=== PATIENT | male | born 1945 | race Caucasian/White ===

== ENCOUNTER 2017-02-22 18:33 | Outpatient (CLI) | payer MEDICARE | END 2017-02-22 18:34 | disposition short-term general hospital (02) | LOC: EMS 18:33 | PROVIDERS: ATTEND Surgery | DX: R53.1 Weakness (principal) | CPT/HCPCS: A0425; A0427 ==

== ENCOUNTER 2017-03-03 15:03 | Outpatient (CLI) | payer MEDICARE ==
[2017-03-03 17:46] LABS: BASOPHILS % (AUTO) 0.1 %; HCT - HEMATOCRIT 27.8 % (42.0-52.0); HGB - HEMOGLOBIN 8.9 g/dL (14.0-18.0); LYMPHOCYTES # (AUTO) 0.3 10^3/uL (1.5-3.5); LYMPHOCYTES % (AUTO) 2.6 %; MEAN CORPUSCULAR HEMOGLOBIN 29.8 pg (27.0-31.0); MEAN CORPUSCULAR HGB CONC 32.1 g/dL (32.0-36.0); MEAN CORPUSCULAR VOLUME 92.9 fL (80.0-94.0); MEAN PLATELET VOLUME 8.7 fL (7.4-11.4); MONOCYTES # (AUTO) 0.4 10^3/uL (0.0-1.0); MONOCYTES % (AUTO) 2.6 %; NEUTROPHILS # (AUTO) 12.7 10^3/uL (1.5-6.6); NEUTROPHILS % (AUTO) 94.7 %; NUCLEATED RED BLOOD CELLS AUTO 0.1 /100WBC; RED BLOOD COUNT 2.99 10^6/uL (4.70-6.10); RED CELL DISTRIBUTION WIDTH 16.3 % (12.0-15.0); UNCORRECTED WHITE BLOOD COUNT 13.4 x10^3/uL; WHITE BLOOD COUNT 13.4 x10^3/uL (4.8-10.8)
== END 2017-03-03 15:04 | disposition home or self-care (01) ==
LOC: LAB 15:03
PROVIDERS: ATTEND Internal Medicine
DX: K92.2 Gastrointestinal hemorrhage, unspecified (principal)
CPT/HCPCS: 36415; 85025

== ENCOUNTER 2017-06-15 08:57 | Outpatient (CLI) | payer MEDICARE ==
[2017-06-15 09:36] LABS: ALBUMIN/GLOBULIN RATIO 0.8 (1.0-2.2); BILIRUBIN,TOTAL 0.5 mg/dL (0.2-1.0); CALCIUM 9.1 mg/dL (8.5-10.3); POTASSIUM 4.5 mmol/L (3.5-5.0)
== END 2017-06-15 08:58 | disposition home or self-care (01) ==
LOC: LAB 08:57
PROVIDERS: ATTEND Family Medicine
DX: I50.9 Heart failure, unspecified (principal)
CPT/HCPCS: 36415; 80053

== ENCOUNTER 2017-08-04 09:30 | Outpatient (CLI) | payer MEDICARE ==
--- NOTE | 2017-08-04 16:02 | CONSULTATION NOTE ---
Palliative Care Consultation - Referral Referring Provider: Dr. Baltazar Lee Time of Visit: 9:30 Referral setting: Home Referral Reason: interstitial lung disease/increasing SOB - Information Sources Records reviewed: Previous records reviewed History/Review of Systems obtained from: Patient, Family Exam limitations: No limitations - History of Present Illness Brief History of Present Illness: Thank you, Dr. Lee, for asking the palliative care consult service to be involved in the care of your patient. I am asked to provide support regarding a recent decline in respiratory status, patient's inquiries about hospice, symptom management, and advanced care planning. This is a luis e 72-year-old gentleman with interstitial pulmonary disease and a quite complicated health history, including chronic lymphoid leukemia, heart failure, PVD, DM 2, HTN, hyperlipidemia, OA, RLS. He has undergone open heart surgery twice, he has had at least 10-12 stents placed over a period of three decades. He has had multiple hospital admissions over the past several years for treatment of coronary artery disease, treatment of peripheral vascular disease with infection and graft, and respiratory failure with a diagnosis of interstitial lung disease. Now he is on 24 is/7 oxygen (4 liters) and is extremely dyspneic with any exertion. Pulmonology evaluated him and recommended pulmonary rehabilitation, but he did not complete this therapy due to the severity of his dyspnea, which did not seem to be improving. 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 He was about to undergo chemotherapy, however he will not proceed with that plan due to the significant decline in his respiratory status. His O2 sats are 95% on 4L of O2, HR 65, while he is sitting and immobile. After 2 minutes of exertion with 4L of oxygen, his O2 sats drop to 85%, HR 86, and it takes 2 minutes to return to his baseline. After 2 minutes of exertion on room air, his O2 sats drop to 77%, HR 90, and after 3 minutes of recuperation, sats were at 79-81%, HR 67. Accommodations he has made since his decline in respiratory function is moving into a bedroom on the main floor of the house and avoiding steps as much as possible. He sleeps in the bed that they have raised about 4 inches. He also sleeps with at least three pillows. He has had difficulty sleeping recently due to restless leg syndrome, and so he is trying ambien as prescribed by his PCP. He is not opioid naive as he is currently using Twisp 1-2 times a day for muskuloskeletal pain. He has had a positive experience with morphine in the past , post-operatively, and so he is positive about starting it now for relief of respiratory symptoms. Information obtained from patient, spouse, and the EMR chart notes from Dr. Baltazar Lee. Medical/Surgical History - Past Medical History Cardiovascular: reports: Congestive heart failure, Hypertension, High cholesterol, Coronary artery disease, Peripheral Vascular Disease, CA (NSTEMI) Respiratory: reports: Shortness of breath, Other (interstitial lung disease) Musculoskeletal: reports: Osteoarthritis, Other (trochanteric bursistis, R hip) MRSA Hx?: No Other Past Medical History: chronic lymphoid leukemia, now coming out of 6-year remission - Past Surgical History Cardiovascular: reports: CABG, Coronary stent (multiple stents), Angioplasty, Other (aorotobifemoral bypass surgery with subsequent infection of prostehetic vascular graft) - Substance History Tobacco Details: Cigarettes (quit 35 years ago (1970s). 10 year pack history.) Social History - Living Situation Living arrangement: At home Living Situation: With spouse/s.o. Support System: He and his have been 34 years, and right after returning from their [facility] hiking on the [facility] trail was when he had an angioplasty and his first stent. His doctor told him at that time to enjoy the life he had and make every minute count, and so they have done that. 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 His works with "fibers," from raising the sheep, shearing the wool, spinning it, and weaving it. He has enjoyed collecting and showing [employer] cars (model T's. They both have enjoyed hiking and activities through the years. They also have a good social support network on [facility]. Neither one of them can drive anymore (due to health problems; she has problems with her vision ) and their farm is remote. Neighbors and friends take them shopping, on errands , and to medical appointments. His friends from the [email or web address] car club are helping him get two of his classic cars running this weekend. Medications/Allergies - Medications Home Medications: Ambulatory Orders Medication Instructions Recorded Confirmed Insulin Glargine,Hum.rec.anlog 50 unit SQ QAM 02/01/13 08/04/17 [Lantus] Losartan [Cozaar] 50 mg PO BID 02/01/13 08/04/17 Metformin HCl 500 mg PO BID 02/01/13 08/04/17 Potassium 10 meq PO DAILY 02/01/13 08/04/17 Gabapentin 300 mg PO DAILY PRN 12/15/14 08/04/17 Hydrocodone/Acetaminophen [Twisp 1 - 2 tab PO Q6H PRN 10/01/15 08/04/17 5-325 Tablet] Amoxicillin/Potassium Clav [Amox 1 each PO BID 02/01/16 08/04/17 Tr-K Clv 875-125 mg Tab] Clopidogrel [Plavix] 75 mg PO DAILY 08/01/16 08/04/17 Isosorbide Mononitrate ER [Imdur] 30 mg PO DAILY 08/01/16 08/04/17 Metoprolol Tartrate [Lopressor] 100 mg PO BID 08/01/16 08/04/17 [place]-3/Dha/Epa/Fish Oil [[place] 3 2 cap PO BID 08/01/16 08/04/17 500 Softgel] Torsemide 60 mg PO DAILY 08/01/16 08/04/17 Aspirin [Adult Low Dose Aspirin EC] 81 mg PO DAILY 08/04/17 08/04/17 Insulin Lispro [Humalog] 8 unit SUBQ ONCE PRN MDD use 08/04/17 08/04/17 sliding scale LORazepam [Ativan] 0.5 mg PO Q6H PRN 08/04/17 08/04/17 Morphine Sulfate [Morphine Sulf 0.25 ml PO Q2H PRN 08/04/17 08/04/17 Oral (Roxanol)] Nitroglycerin [Nitrostat] 0.4 mg SL Q5MIN PRN 08/04/17 08/04/17 Nystatin 1 each TOP BID PRN 08/04/17 08/04/17 Pramipexole Di-HCl [Mirapex] 1 mg PO QPM 08/04/17 08/04/17 Pravastatin Sodium 20 mg PO QPM 08/04/17 08/04/17 Zolpidem Tartrate [Ambien] 5 - 10 mg PO QPM PRN 08/04/17 08/04/17 - Allergies Allergies/Adverse Reactions: Allergies Allergy/AdvReac Type Severity Reaction Status Date / Time No Known Drug Allergies Allergy Verified 02/01/13 11:38 Review of Systems - Constitutional Constitutional: reports: Fatigue, Weight stable (195 lbs on home scale). denies : Poor appetite - Cardiovascular Cardiovascular: reports: Exertional dyspnea, Decr. exercise tolerance. denies: Chest pain, Edema - Respiratory Respiratory: reports: SOB at rest, SOB with exertion. denies: Pleuritic pain - Gastrointestinal Gastrointestinal: reports: Diarrhea (loose stools) - Genitourinary Genitourinary: denies: Dysuria, Frequency - Musculoskeletal Musculoskeletal: reports: Joint pain (no complaints of arthritic pain currently) , Assistive devices (ambulates with a cane) - Endocrine Endocrine: reports: Diabetes type 2 (BGs have been elevated recently) - Hematologic/Lymphatic Hematologic/Lymphatic: reports: Other (chronic lymphoid leukemia coming out of a 6-year remission) Physical Exam - Vital Signs Temperature: 97.5 F Pulse Rate: 65 O2 Saturation: 95 (on 4L O2 via NC) Blood Pressure: 170/90 (BP always increases with talking) - Physical Exam General Appearance: positive: No acute distress Eyes Bilateral: positive: EOMI, No lid inflammation, Conjunctivae nml, No scleral icterus ENT: positive: Pharynx nml, No signs of dehydration Neck: positive: Thyroid nml, No JVD, Trachea midline Cardiovascular: positive: No murmur, No gallop Respiratory: positive: Chest non-tender, No respiratory distress, Diminished in bases (LLL) Skin: positive: No symptoms Extremities: positive: Non-tender, No pedal edema Neurologic/Psychiatric: positive: Oriented x3, Motor nml, Sensation nml, Mood/ affect nml Palliative Care - POLST Patient has POLST: Yes POLST Status: DNR, Limited Interventions (open to hospitalization if it promotes quality of life, but no unnecessary prolongation of life) Pain: Pain unchanged Tiredness/Fatigue: Mild (1-3) Drowsiness/Sedation: None Nausea: None Depression: None Anxiety: Mild (1-3) Dyspnea: Severe (7-10) Anorexia: None Sleep: Sleeps poorly Constipation: No Performance Status: Current level of functioning: Ambulatory with aid of cane, but ambulation and all activity is extremely limited due to severe, persistent SOB. He uses 4L/ hour oxygen 24/04, which is a recent change in since May. He is able to perform his own ADLs and IADLs. No cognitive deficits, no incontinence. Palliative Care Performance Status: 60% - Palliative Care Discussion: Who is present: The patient, his spouse, and myself. Surrogate decision maker: Nelia Doran, spouse. Home [phone]. Patient/Family understanding of the illness: Patient and his spouse both have realistic expectations and insight into the seriousness of patients current condition. They understand that his lifespan is limited, the pay per click strategist said the average life expectancy is 5 years from diagnosis; he was diagnosed 2 years ago. Most important goals: The most important goal is quality of life and keeping him as comfortable as possible, and they are also not opposed to hospitalizations if it can further his comfort and quality of life, but want to avoid heroic measures and ICU. Patient/family concerns: The biggest concern is what to do in case of respiratory exacerbations, as they have had experienced that hospitalization has not "fixed" anything. I have provided some training on the use of morphine and lorazepam for relief of air hunger symptoms, and I will continue to teach and inform him and his spouse. Also, any hospitalizations should be to [facility], not [facility]. This could be dependent on what [place] permits. Impression and Recommendations - Palliative Care Impression: This is a luis e 72-year-old gentleman with severe, chronic shortness of air secondary to interstitial pulmonary disease and a quite complicated health history, including chronic lymphoid leukemia (now coming off of a 6 year remission), a long history of heart and vascular disease, and diabetes. His dyspnea has significantly worsened in recent weeks and he is now on 24/7 oxygen, 4 L per hour. He does not currently qualify for hospice, but will benefit from palliative care oversight and management of his symptoms, as well as help and support in advanced care planning. We will monitor and transition to hospice as appropriate. Recommendations/Counseling Done: 1. SOB/breathlessness: Started morphine 100mg/5ml. Take 0.25ml (5mg) every 2- 4 hours PRN for relief of SOB. Started lorazepam .05mg tab, 1 tab every 6 hours as needed for agitation related to SOB. For [id number] respiratory exacerbations, educated him on taking morphine and lorazepam together, can take second morphine dosage in 1/2 hour if no relief, and then another 1/2 hour if needed. Can take another lorazepam in 2 hours if needed. 2. Interstitial pulmonary disease: Next appointment with pay per click strategist ( Mannie Keane) and pulmonary function testing is scheduled for November 2017. 3. Chronic lymphoid leukemia: Recently off a 6-year remission, but will not start chemotherapy as originally planned, due to respiratory deficit. Being followed by Dr Wahl at [facility]. 4. Constipation, opioid-related: This has not been an issue even though he is currently using Twisp. He is having loose stools, so I started Miralax 17g daily prn. Will titrate as needed. 5. Restless leg syndrome: Continue pramipexole. Ambien was recently added to help his insomnia due to RLS, but he plans to replace it with morphine. Cautioned him on not using Twisp, morphine, lorazepam and ambien all together. 6. HTN: continue metoprolol and losartan. BP elevated today (170/90), he reports it could be from exertion of speaking extensively of his history. 7. DM II: Managed on metformin, Lantus 50 units Qam, Humalog 8 units plus S/S at meals. Checks BGs daily. Reports they have been increased recently. Follow up at next visit. 8. Advanced care planning: Discussed goals of care, translated these to the POLST, signed and left it for them to attach to refrigerator, made copies for chart. DNR, limited interventions, comfort abx, no feeding tube. Discussed Hospice, and he understands he does not currently meet criteria for admission. He and his want to continue to receive Palliative Care oversight and management of symptoms, and so we will monitor and transition to Hospice when appropriate. Return visit scheduled for 08/09 to follow up on new medications started . Time Spent: 90 minutes with greater than 50% done in counseling and evaluation of his respiratory status, coordination of care regarding advanced care planning and symptom burden, weighing the benefits and burdens of different intervention options. Providing anticipatory guidance.
== END 2017-08-04 09:31 | disposition home or self-care (01) ==
LOC: PC 09:30
PROVIDERS: ATTEND Nurse Practitioner
DX: Z51.5 Encounter for palliative care (principal); J84.9 Interstitial pulmonary disease, unspecified; C91.10 Chronic lymphocytic leukemia of B-cell type not having achieved remission; I11.0 Hypertensive heart disease with heart failure; I50.9 Heart failure, unspecified; E11.51 Type 2 diabetes mellitus with diabetic peripheral angiopathy without gangrene; M19.90 Unspecified osteoarthritis, unspecified site; G25.81 Restless legs syndrome; Z95.5 Presence of coronary angioplasty implant and graft; I25.10 Atherosclerotic heart disease of native coronary artery without angina pectoris; Z99.81 Dependence on supplemental oxygen; Z79.891 Long term (current) use of opiate analgesic; I25.2 Old myocardial infarction; Z95.1 Presence of aortocoronary bypass graft; Z87.891 Personal history of nicotine dependence; Z79.4 Long term (current) use of insulin; Z79.84 Long term (current) use of oral hypoglycemic drugs; Z66 Do not resuscitate; E78.5 Hyperlipidemia, unspecified
CPT/HCPCS: 99345

== ENCOUNTER 2017-08-09 15:30 | Outpatient (CLI) | payer MEDICARE ==
--- NOTE | 2017-08-09 19:04 | CONSULTATION NOTE ---
Palliative Care Follow Up - Referral Referring Provider: Dr. Baltazar Lee Time of Visit: 15:30 Referral setting: Home - Information Sources Records reviewed: Previous records reviewed History/Review of Systems obtained from: Patient Exam limitations: No limitations - History of Present Illness Update Brief HPI Update: This is a luis e 72-year-old gentleman with interstitial pulmonary disease and a quite complicated health history, including chronic lymphoid leukemia, heart failure, PVD, DM 2, HTN, hyperlipidemia, OA, RLS. He has had two open heart surgeries, multiple stents placed, and multiple hospital admissions for CAD, PVD , respiratory failure and a diagnosis of interstitial lung disease. He uses 24/ 7 oxygen (4 L) and is severely dyspneic with any exertion. He was unable to complete pulmonary therapy due to the severity of his dyspnea. Also he is now coming out of six-year remission of the lymphoma but is unable to undergo chemotherapy due to the significant decline in his respiratory status. Today was a followup after having started him on working and lorazepam for shortness of air. He reports feeling much better reporting that "the morphine is doing everything I was hoping it would do" and this includes controlling his RLS at night and permitting him to eliminate his other pain medications: Gabapentin, Mahnomen, and pramipexole. He did report that the first night he used morphine he had a scare. He had taken morphine, lorazepam, and Ambien before going to bed (contrary to what we had discussed during my first visit), and and woke up during the night, got out of bed and collapsed due to lower extremity weakness. This shook him up quite a bit, and he agrees now to not use on Ambien, and I provided further education on using lorazepam for extreme air hunger episodes, as opposed to routine SOB. He verbalized understanding of that plan. He has been using morphine about 4 days now, and is using it around 4 times daily, including at bedtime to aid sleep. He does note he feels his legs are more "wobbly" since starting it, and we discussed titrating his dosage downward, and that his body will habituate and the sedation and LE weakness should ameliorate. He has been using the MiraLAX and has had one episode of loose stool, so he will decrease to a quarter capful instead of a full capful and adjust as needed. Social History - Living Situation Living arrangement: At home Living Situation: With spouse/s.o. Medications/Allergies - Medications Home Medications: Ambulatory Orders Medication Instructions Recorded Confirmed Insulin Glargine,Hum.rec.anlog 50 unit SQ QAM 02/01/13 08/04/17 [Lantus] Losartan [Cozaar] 50 mg PO BID 02/01/13 08/04/17 Metformin HCl 500 mg PO BID 02/01/13 08/04/17 Potassium 10 meq PO DAILY 02/01/13 08/04/17 Gabapentin 300 mg PO DAILY PRN 12/15/14 08/04/17 Hydrocodone/Acetaminophen [[place] 1 - 2 tab PO Q6H PRN 10/01/15 08/04/17 5-325 Tablet] Amoxicillin/Potassium Clav [Amox 1 each PO BID 02/01/16 08/04/17 Tr-K Clv 875-125 mg Tab] Clopidogrel [Plavix] 75 mg PO DAILY 08/01/16 08/04/17 Isosorbide Mononitrate ER [Imdur] 30 mg PO DAILY 08/01/16 08/04/17 Metoprolol Tartrate [Lopressor] 100 mg PO BID 08/01/16 08/04/17 Henriette-3/Dha/Epa/Fish Oil [[place] 3 2 cap PO BID 08/01/16 08/04/17 500 Softgel] Torsemide 60 mg PO DAILY 08/01/16 08/04/17 Aspirin [Adult Low Dose Aspirin EC] 81 mg PO DAILY 08/04/17 08/04/17 Insulin Lispro [Humalog] 8 unit SUBQ ONCE PRN MDD use 08/04/17 08/04/17 sliding scale LORazepam [Ativan] 0.5 mg PO Q6H PRN 08/04/17 08/04/17 Morphine Sulfate [Morphine Sulf 0.25 ml PO Q2H PRN 08/04/17 08/04/17 Oral (Roxanol)] Nitroglycerin [Nitrostat] 0.4 mg SL Q5MIN PRN 08/04/17 08/04/17 Nystatin 1 each TOP BID PRN 08/04/17 08/04/17 Pramipexole Di-HCl [Mirapex] 1 mg PO QPM 08/04/17 08/04/17 Pravastatin Sodium 20 mg PO QPM 08/04/17 08/04/17 Zolpidem Tartrate [Ambien] 5 - 10 mg PO QPM PRN 08/04/17 08/04/17 - Allergies Allergies/Adverse Reactions: Allergies Allergy/AdvReac Type Severity Reaction Status Date / Time No Known Drug Allergies Allergy Verified 02/01/13 11:38 Review of Systems - Cardiovascular Cardiovascular: reports: Edema. denies: Palpitations, Chest pain - Respiratory Respiratory: reports: SOB at rest (improved with morphine), SOB with exertion ( improved with morphine) - Gastrointestinal Gastrointestinal: reports: Diarrhea (loose stool, one episode since starting Miralax), Good appetite. denies: Constipation - Genitourinary Genitourinary: denies: Dysuria, Frequency, Urgency, Incontinence - Musculoskeletal Musculoskeletal: reports: Other (RLS symptoms improved with morphine) - Endocrine Endocrine: reports: Diabetes type 2 (controlled) Physical Exam - Vital Signs Temperature: 97.6 F Pulse Rate: 70 O2 Saturation: 98 (on 4L O2) Blood Pressure: 148/90 - Physical Exam General Appearance: positive: No acute distress, Alert Eyes Bilateral: positive: EOMI, No lid inflammation, Conjunctivae nml, No scleral icterus ENT: positive: No signs of dehydration Neck: positive: Thyroid nml, No JVD, Trachea midline Cardiovascular: positive: Regular rate & rhythm, No murmur, No gallop Respiratory: positive: Chest non-tender, No respiratory distress, Diminished throughout (particularly left lobes). negative: Rales, Rhonchi Skin: positive: No symptoms Extremities: positive: Full ROM, Nml appearance, No pedal edema Neurologic/Psychiatric: positive: Oriented x3, Motor nml, Sensation nml, Mood/ affect nml Palliative Care - POLST Patient has POLST: Yes POLST Status: DNR, Limited Interventions Pain: Pain unchanged Tiredness/Fatigue: Mild (1-3) Drowsiness/Sedation: Mild (1-3) (wobbly legs with starting morphine) Nausea: None Depression: None Anxiety: None Dyspnea: Moderate (4-6) (improved) Anorexia: None Sleep: Variable sleep pattern (can wake up during the night.) Constipation: Comment (episodic loose stools, holds Miralax when that occurs) Feelings of wellbeing/Perceived Quality of Life: Good (He is enjoying the life he has.) Performance Status: Current level of functioning: Ambulatory with a cane, which is quite limited due to persistent SOB. He has been on 4 L oxygen 24/7 since May. He does not leave the house due to fear of being caught outside during an episode of respiratory exacerbation and possibly collapsing Palliative care performance status: 60% - Palliative Care Discussion: Who is present: The patient and myself. Surrogate decision maker: Nelia Doran, spouse. Home [phone]. Patient/family understanding of the illness: Patient reiterates his understanding that he has a very limited life span, but does say he is enjoying the life he has and finds pleasure in living his life. He is appreciating palliative care management and oversight, and especially pleased with symptom relief he is experiencing with morphine. He has stopped taking gabapentin, pramipexole, and Mahnomen, finding that morphine relieves the restless leg syndrome pain, in addition to alleviating his dyspnea. He is sleeping better with using morphine, but is still adjusting to the feeling of lower extremity weakness and unsteadiness. He agreed experiment with incrementally smaller dosages, starting at 0.15 or 0.20 mL. Impression and Recommendations - Palliative Care Impression: This is a luis e 72-year-old gentleman with severe, chronic shortness of air secondary to interstitial pulmonary disease and a quite complicated health history, including chronic lymphoid leukemia coming off a 6-year remission, a long history of heart and vascular disease, and diabetes. He has had increasingly severe dyspnea and has been on 24/7 oxygen 4 L per hour since May. About 4 days ago he started on morphine for relief of dyspnea symptoms, and as a well as lorazepam as needed for exacerbations and severe " air hunger." He notes a definite improvement in his symptoms, including RLS. I will work with him to titrate dosing to achieve the right balance of alleviation of dyspnea and functionality and continue to provide education and guidance. Recommendations/Counseling Done: Dyspnea: Improved with morphine 100 mg/5 mL -- take 0.25 mL (5 mg) PO every 2-4 hours when necessary for relief of SOB. Use lorazepam 0.5 mg tablet, one tablet every 6 hours as needed for agitation related to respiratory exacerbation. Provided further education on not mixing opioids, lorazepam, and Ambien. He will discontinue using Ambien, gabapentin and Mahnomen, and verbalizes understanding of use of morphine, and adding lorazepam with severe respiratory exacerbation. In case of respiratory exacerbation, OK to repeat morphine dose after 1/2 hour if no relief, and ok to repeat lorazepam dosage after 2 hours if no relief. Interstitial pulmonary disease: Follow up with physician allergist immunologist Mannie Keane is scheduled for November 2017. Chronic lymphoid leukemia: Will not start chemotherapy due to respiratory decline. Followed by Dr. Wahl at [facility]. Constipation, opioid-related: Decrease Miralax to a quarter capful daily, and titrate every 2-3 days as needed. Hold for loose stools. Restless leg syndrome: Improved with usage of morphine, patient is now discontinuing his Mahnomen, gabapentin and pramipexole. HTN: BP improved from previous visit which was 170/90, today it's 148/90. DM 2: Managing hyperglycemia with metformin and Lantus 50 units every morning, Humalog 8 units plus sliding scale at meals. Follow up on the BGs check, are BG readings still elevated? Follow up call next week. Time Spent: 20 minutes with greater than 50% done in evaluation, counseling and education regarding newly started medications, proper dosing and administration, and side effects. Provided anticipatory guidance.
== END 2017-08-09 15:31 | disposition home or self-care (01) ==
LOC: PC 15:30
PROVIDERS: ATTEND Nurse Practitioner
DX: Z51.5 Encounter for palliative care (principal); J84.9 Interstitial pulmonary disease, unspecified; C91.10 Chronic lymphocytic leukemia of B-cell type not having achieved remission; K59.03 Drug induced constipation; T40.2X5A Adverse effect of other opioids, initial encounter; G25.81 Restless legs syndrome; I11.0 Hypertensive heart disease with heart failure; I50.9 Heart failure, unspecified; E11.51 Type 2 diabetes mellitus with diabetic peripheral angiopathy without gangrene; E78.5 Hyperlipidemia, unspecified; Z95.1 Presence of aortocoronary bypass graft; I25.10 Atherosclerotic heart disease of native coronary artery without angina pectoris; Z99.81 Dependence on supplemental oxygen; Z79.891 Long term (current) use of opiate analgesic; Z79.4 Long term (current) use of insulin; Z79.82 Long term (current) use of aspirin; Z79.84 Long term (current) use of oral hypoglycemic drugs; Z66 Do not resuscitate; Z79.899 Other long term (current) drug therapy
CPT/HCPCS: 99347

== ENCOUNTER 2017-09-05 19:37 | Outpatient (CLI) | payer MEDICARE ==
--- NOTE | 2017-09-05 19:47 | CONSULTATION NOTE ---
Palliative Care Follow Up - Referral Referring Provider: Dr Baltazar Lee Time of Visit: 15:30 Referral setting: Home (Seen in home setting due to taxing and considerable effort required to leave the home due to being homebound secondary to significant breathlessness from interstitial pulmonary disease.) - Information Sources Records reviewed: Previous records reviewed History/Review of Systems obtained from: Patient, Family Exam limitations: No limitations - History of Present Illness Update Brief HPI Update: This is a luis e 72-year-old gentleman with interstitial pulmonary disease and a quite complicated health history, including chronic lymphoid leukemia, heart failure, PVD, DM 2, TH, hyperlipidemia, OA, RLS. He's had two open heart surgeries, multiple stents placed, and multiple hospital admissions for CAD, PVD , respiratory failure and a diagnosis of interstitial lung disease. He is coming out of a six-year remission of the lymphoma but is unable to undergo chemotherapy due to the significant decline in his respiratory status. He is on 4 liters of oxygen via nasal canula 24/04 and becomes severely dyspneic with any exertion. He has been using the morphine regularly since my initial visit 04 August 2017. He uses 5mg morphine 3-4 times daily, and lorazepam 2-3 times/day when he really feels the lack of oxygen. He notes that his SOB feels the worst around 5pm, when he gets up and becomes more active after being sedentary most of the day, reading or doing other quiet activity. Any exertion increases his dyspnea. He reports that the morphine does help with feelings of shortness of air, and lorazepam helps with the anxiety of dyspnea. He is careful to try to separate dosing of morphine and lorazepam by 2-3 hours to avoid over sedation. 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 He says "what difference does it make?" and that it won't change anything in his outcome. He says he has enough of the antibiotic to last until November. He also does not plan to follow up with his bartenders in November. He is not interested in the intervention the specialist was proposing, due to the side effects, and again, he thinks the benefits and projected outcome do not outweight the burdens. He reports his constipation is well controlled using 3/4 capful of miralax. He has a cough, occasionally productive, and mild crackles in RLL. He has started using his torsemide 60g daily again. He also has had two episodes of sudden feeling of being feverish, which pass by the next morning. He has used aspirin for symptoms; he could also use Tylenol for symptom relief. Social History - Living Situation Living arrangement: At home Living Situation: With spouse/s.o. Support System: Strong social network. neither he nor his drive anymore. They have a network of friends that take them shopping and on errands, and help around the farm. Medications/Allergies - Medications Home Medications: Ambulatory Orders Medication Instructions Recorded Confirmed Insulin Glargine,Hum.rec.anlog 50 unit SQ QAM 02/01/13 08/04/17 [Lantus] Losartan [Cozaar] 50 mg PO BID 02/01/13 08/04/17 Metformin HCl 500 mg PO BID 02/01/13 08/04/17 Potassium 10 meq PO DAILY 02/01/13 08/04/17 Hydrocodone/Acetaminophen [[place] 1 - 2 tab PO Q6H PRN 10/01/15 08/04/17 5-325 Tablet] Amoxicillin/Potassium Clav [Amox 1 each PO BID 02/01/16 08/04/17 Tr-K Clv 875-125 mg Tab] Clopidogrel [Plavix] 75 mg PO DAILY 08/01/16 08/04/17 Isosorbide Mononitrate ER [Imdur] 30 mg PO DAILY 08/01/16 08/04/17 Metoprolol Tartrate [Lopressor] 100 mg PO BID 08/01/16 08/04/17 [place]-3/Dha/Epa/Fish Oil [[place] 3 2 cap PO BID 08/01/16 08/04/17 500 Softgel] Torsemide 60 mg PO DAILY 08/01/16 08/04/17 Aspirin [Adult Low Dose Aspirin EC] 81 mg PO DAILY 08/04/17 08/04/17 Insulin Lispro [Humalog] 8 unit SUBQ ONCE PRN MDD use 08/04/17 08/04/17 sliding scale LORazepam [Ativan] 0.5 mg PO Q6H PRN 08/04/17 08/04/17 Morphine Sulfate [Morphine Sulf 0.25 ml PO Q2H PRN 08/04/17 08/04/17 Oral (Roxanol)] Nitroglycerin [Nitrostat] 0.4 mg SL Q5MIN PRN 08/04/17 08/04/17 Nystatin 1 each TOP BID PRN 08/04/17 08/04/17 Pramipexole Di-HCl [Mirapex] 1 mg PO QPM 08/04/17 08/04/17 Pravastatin Sodium 20 mg PO QPM 08/04/17 08/04/17 Zolpidem Tartrate [Ambien] 5 - 10 mg PO QPM PRN 08/04/17 08/04/17 Polyethylene Glycol 3350 [Miralax] 17 gm PO DAILY 09/05/17 09/05/17 - Allergies Allergies/Adverse Reactions: Allergies Allergy/AdvReac Type Severity Reaction Status Date / Time No Known Drug Allergies Allergy Verified 02/01/13 11:38 Review of Systems - Constitutional Constitutional: reports: Fever (Occasional (two) episodes of fever, relieved by aspirin.), Weight stable. denies: Poor appetite, Diaphoresis, Night sweats - Ears, Nose & Throat Ears, Nose & Throat: reports: Hearing loss - Cardiovascular Cardiovascular: reports: Exertional dyspnea, Decr. exercise tolerance. denies: Chest pain, Edema - Respiratory Respiratory: reports: Cough (occasional), Sputum production, SOB at rest, SOB with exertion - Gastrointestinal Gastrointestinal: reports: Poor appetite, Good appetite. denies: Constipation, Diarrhea, Change in bowel habits, Nausea - Genitourinary Genitourinary: denies: Dysuria, Frequency, Incontinence - Musculoskeletal Musculoskeletal: reports: Joint pain, Assistive devices (cane, walker) - Endocrine Endocrine: reports: Diabetes type 2 (On metformin, lispro and insulin glargine) Physical Exam - Vital Signs Temperature: 97.3 F Pulse Rate: 72 O2 Saturation: 99 (4L O2) Blood Pressure: 147/90 (His BP runs high) - Physical Exam General Appearance: positive: No acute distress, Alert Eyes Bilateral: positive: EOMI, No lid inflammation, Conjunctivae nml, No scleral icterus ENT: positive: No signs of dehydration Neck: positive: Thyroid nml, No JVD, Trachea midline Cardiovascular: positive: Regular rate & rhythm, No murmur, No gallop Respiratory: positive: No respiratory distress, Diminished in bases (Left side) , Rales (mild crackles RLL) Skin: positive: No symptoms Extremities: positive: Nml appearance, No pedal edema Neurologic/Psychiatric: positive: Oriented x3, Sensation nml, Mood/affect nml Palliative Care - POLST Patient has POLST: Yes POLST Status: DNR, Limited Interventions Pain: No pain Tiredness/Fatigue: Mild (1-3) Drowsiness/Sedation: None Nausea: None Depression: None Anxiety: Mild (1-3) (occasional, with feelings of SOB. Uses lorazepam for relief ) Dyspnea: Severe (7-10) (4L O2 continually.) Anorexia: None Sleep: Variable sleep pattern (when he occasionally wakes up in night, he takes lorazepam to go back to sleep) Feelings of wellbeing/Perceived Quality of Life: Good Performance Status: Current level of functioning: Mobility severely limited due to significant SOB. Ambulatory with cane. Severe SOB with any exertion, so he is house-bound; he does not go out on his property for fear of inability to get back into the house. Continues to perform his own ADLs. Continent of bowel and bladder. No cognitive deficits. Palliative care status: 60% - Palliative Care Discussion: Who is present: Patient, spouse, myself. Surrogate decision maker Nelia Doran, spouse Home [phone] Most important goals: He wants to be comfortable, and enjoy his life to the fullest within the limitations of his disease. He recognizes he has a terminal disease and is enjoying his time with his , and looks forward to activities like reading, and starting an art project he has been considering. He feels he has a good quality of life. Though he cannot do the things he has been able to do in the past, he has the ability to be grateful and happy for what he is still able to do and to accomplish. We reviewed his POLST form, and it still accurately reflects his goals and wishes. If he were to need hospitalization (limited intervention), he would want to go to the hospital -- but only [facility]; he no longer wants to go to [place], or anywhere off [facility]. He does not want to pursue treatment that he believes is not going to make a difference. For instance, he does not plan to follow up with the bartenders, or the infectious disease physician for his antibiotics. He will continue using the Augmentin until his current supply runs out sometime in November (he is supposed to take it "indefinitely"). We discussed the risk of sepsis, and he said he accepts that. Patient/family concerns: The patient and his are close friends with their [place] metallurgical engineering technician and feel they have a good social and spiritual support network. His is going to attend a spiritual gathering next week, and will be gone overnight. A friend will be coming to stay at the house with the patient so he is not alone. Impression and Recommendations - Palliative Care Impression: This is a luis e 72-year-old gentlemn with severe, chronic shortness of air secondary to interstitial pulmonary disease and a quite complicated health history including chronic lymphoid leukemia (coming off a 6-year remission), a long history of CHF, heart and vascular disease, and diabetes, and is currently on 4L of oxygen 24hrs/day. Morphine is controlling the SOB and providing comfort. He may benefit from adjustment of diuretics for crackles in lungs and occasional cough; I will follow up with Dr Lee, his PCP. Palliative care is monitoring; transition to Hospice when appropriate. Recommendations/Counseling Done: Dyspnea: Morphine 3-4 times/day. Currently using 0.25ml (5mg) dosing, ok to increase to 0.4-0.5ml (7.5-10mg) dosing if SOB not relieved with 5mg. Continue lorazepam 0.5mg tablet for anxiety associated with dyspnea. He's been using it 2 -3x/daily. OK to repeat morphine dose after 1/2 hour if no relief, and ok to repeat lorazepam dosage after 2 hours if no relief. CHF: On torsemide 60mg daily. Left message with his PCP, Dr Lee, inquiring whether he wants to increase dosage due to SOB and crackles. Follow up. He is also on metoprolol. Interstitial pulmonary disease: Customer Account Executive follow up consultation is scheduled for November; patient does not intend to go. Chronic lymphoid leukemia: managed by Dr Wahl at [facility] Constipation, opioid-induced: Controlled using 3/4 capful of Miralax daily. Continue to monitor. Restless leg syndrome: Improved with morphine usage. Continue pramipexole. DM 2: Continue metformin, Lantus 50 units Qam, Humalog 8 units plus sliding scale. Advanced care planning: Reviewed POLST (DNR, limited interventions), it still reflects his goals and wishes. Continue to follow up by phone weekly, meet in person monthly, monitor for decline, transition to Hospice when appropriate. Time Spent: 60 minutes were spent with more than 50% of the time spent on counseling, education, and coordination of care regarding SOB, cough, CHF, medications.
== END 2017-09-05 19:38 | disposition home or self-care (01) ==
LOC: PC 19:37
PROVIDERS: ATTEND Nurse Practitioner
DX: Z51.5 Encounter for palliative care (principal); J84.9 Interstitial pulmonary disease, unspecified; I50.9 Heart failure, unspecified; C91.10 Chronic lymphocytic leukemia of B-cell type not having achieved remission; K59.03 Drug induced constipation; T40.2X5D Adverse effect of other opioids, subsequent encounter; G25.81 Restless legs syndrome; E11.51 Type 2 diabetes mellitus with diabetic peripheral angiopathy without gangrene; I25.10 Atherosclerotic heart disease of native coronary artery without angina pectoris; E78.5 Hyperlipidemia, unspecified; Z99.81 Dependence on supplemental oxygen; Z79.891 Long term (current) use of opiate analgesic; Z95.5 Presence of coronary angioplasty implant and graft; Z79.2 Long term (current) use of antibiotics; Z79.4 Long term (current) use of insulin; Z79.84 Long term (current) use of oral hypoglycemic drugs; Z79.02 Long term (current) use of antithrombotics/antiplatelets; Z79.82 Long term (current) use of aspirin; Z66 Do not resuscitate
CPT/HCPCS: 99350

== ENCOUNTER 2017-09-28 19:49 | Outpatient (CLI) | payer MEDICARE ==
--- NOTE | 2017-09-28 19:58 | CONSULTATION NOTE ---
Palliative Care Follow Up - Referral Referring Provider: Dr Baltazar Lee Time of Visit: 09/28/17 15:45 Referral setting: Home (Seen in home setting due to taxing and considerble effort reqruied to leave [facility] due to being homebound secondary to significant breathlessness from intertitial pulmonary disease.) - Information Sources Records reviewed: Previous records reviewed History/Review of Systems obtained from: Patient Exam limitations: No limitations - History of Present Illness Update Brief HPI Update: This is a luis e 72-year-old gentleman with interstitial pulmonary disease and a quite complicated health history, including chronic lymphoid leukemia, heart failure, PVD, DM2, HTN, hyperlipidemia, OA, RLS. He has undergone two open heart surgeries, had multiple stents placed, and multiple hospital admissions for CAD, PVD, respiratory failure and a diagnosis of interstitial lung disease. He has come out of a six-year remission of the lymphoma but could not undergo chemotherapy due tothe significant decline in his respiratory status. He is on 4 liters of oxygen via nasal cannula 24/04 and becomes severely dyspneic with any exertion. He reports increasing SOB but he thinks it's because he is not using the morphine as often as he should because he does not like the "woozy" effect it gives him. He is taking about the same amount he has been since starting morphine: 0.25mL (5mg) dosing, usually 3 times a day (morning, 7pm, 10-11pm). He has not yet tried to using smaller doses (0.20 or 0.15ml) more frequently. He did say he would try that. Another possibility is trying long-acting 15mg MSContin, but he would need to first increase his daily dosage of the short acting in order to habituate to the higher dosing. He also notes increased numbness in ring and little fingers of both hands, and cramps in his calves. The calf pain is only at night. The hand cramping is usually all day. He has experienced this pain before, but it has increased. Social History - Living Situation Living arrangement: At home Living Situation: With spouse/s.o. Support System: He has a strong support system with many friends who pitch in and help them. 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 Medications/Allergies - Medications Home Medications: Ambulatory Orders Medication Instructions Recorded Confirmed Insulin Glargine,Hum.rec.anlog 50 unit SQ QAM 02/01/13 08/04/17 [Lantus] Losartan [Cozaar] 50 mg PO BID 02/01/13 08/04/17 Metformin HCl 500 mg PO BID 02/01/13 08/04/17 Potassium 10 meq PO DAILY 02/01/13 08/04/17 Hydrocodone/Acetaminophen [[place] 1 - 2 tab PO Q6H PRN 10/01/15 08/04/17 5-325 Tablet] Amoxicillin/Potassium Clav [Amox 1 each PO BID 02/01/16 08/04/17 Tr-K Clv 875-125 mg Tab] Clopidogrel [Plavix] 75 mg PO DAILY 08/01/16 08/04/17 Isosorbide Mononitrate ER [Imdur] 30 mg PO DAILY 08/01/16 08/04/17 Metoprolol Tartrate [Lopressor] 100 mg PO BID 08/01/16 08/04/17 [place]-3/Dha/Epa/Fish Oil [[place] 3 2 cap PO BID 08/01/16 08/04/17 500 Softgel] Torsemide 60 mg PO DAILY 08/01/16 08/04/17 Aspirin [Adult Low Dose Aspirin EC] 81 mg PO DAILY 08/04/17 08/04/17 Insulin Lispro [Humalog] 8 unit SUBQ ONCE PRN MDD use 08/04/17 08/04/17 sliding scale LORazepam [Ativan] 0.5 mg PO Q6H PRN 08/04/17 08/04/17 Morphine Sulfate [Morphine Sulf 0.25 ml PO Q2H PRN 08/04/17 08/04/17 Oral (Roxanol)] Nitroglycerin [Nitrostat] 0.4 mg SL Q5MIN PRN 08/04/17 08/04/17 Nystatin 1 each TOP BID PRN 08/04/17 08/04/17 Pramipexole Di-HCl [Mirapex] 1 mg PO QPM 08/04/17 08/04/17 Pravastatin Sodium 20 mg PO QPM 08/04/17 08/04/17 Zolpidem Tartrate [Ambien] 5 - 10 mg PO QPM PRN 08/04/17 08/04/17 Polyethylene Glycol 3350 [Miralax] 17 gm PO DAILY 09/05/17 09/05/17 - Allergies Allergies/Adverse Reactions: Allergies Allergy/AdvReac Type Severity Reaction Status Date / Time No Known Drug Allergies Allergy Verified 02/01/13 11:38 Review of Systems - Constitutional Constitutional: reports: Weight stable. denies: Poor appetite - Ears, Nose & Throat Ears, Nose & Throat: reports: Hearing loss - Respiratory Respiratory: reports: Cough (occasional), SOB at rest, SOB with exertion - Gastrointestinal Gastrointestinal: reports: Good appetite. denies: Constipation, Nausea, Poor appetite - Genitourinary Genitourinary: denies: Dysuria, Frequency, Urgency, Incontinence - Musculoskeletal Musculoskeletal: reports: Stiffness, Joint pain, Assistive devices (cane, walker ) - Endocrine Endocrine: reports: Diabetes type 2 (metformin, lispro, insulin glargine) Physical Exam - Vital Signs Temperature: 96.4 F Pulse Rate: 76 O2 Saturation: 98 Blood Pressure: 165/90 - Physical Exam General Appearance: positive: No acute distress, Alert Eyes Bilateral: positive: EOMI, No lid inflammation, Conjunctivae nml, No scleral icterus ENT: positive: No signs of dehydration Neck: positive: Thyroid nml, No JVD, Trachea midline Cardiovascular: positive: Regular rate & rhythm, No murmur, No gallop Respiratory: positive: Chest non-tender, No respiratory distress, Diminished throughout (worse on L). negative: Wheezes, Rales, Rhonchi Skin: positive: No symptoms Extremities: positive: Non-tender, Nml appearance, No pedal edema Neurologic/Psychiatric: positive: Oriented x3, Mood/affect nml. negative: Motor nml (tremor in hands) Palliative Care - POLST Patient has POLST: Yes POLST Status: DNR, Limited Interventions Pain: Pain worsening, Location (Cramping of bilateral ring and little fingers during the day. Cramping of both calfs at night) Tiredness/Fatigue: Mild (1-3) Drowsiness/Sedation: None Nausea: None Anxiety: Mild (1-3) (occasional due to air hunger/SOB. Has lorazepam for relief) Dyspnea: Severe (7-10) (4 liters/minute via nasal cannula /) Anorexia: None Sleep: Variable sleep pattern (Wakes up at night with anxiety/SOB. Leg cramps occur at night.) Performance Status: Current level of functioning: Severely limited due to significant SOB, but stable. Ambulates with cane. on 4L O2 24. Severe SOB with any exertion. Very rarely leaves the house or goes on to his property for fear of being stranded. He is also very careful to keep away from situation where he is exposed to infectious agents. He continues to perform his own ADLs, showers himself, and is continent of bladder and bowel. No cognitive deficits. Palliative care status: 50% - Palliative Care Discussion: We reviewed his advanced care planning, and he stated he wanted to in the hospital, not at home. His reasoning is that he does not want his , Nelia , to have to deal with his body being in the house for an extended period. He assumes it takes time for the personnel to arrive and take care of the body. We discussed how it would be with Hospice there, and that they would handle these aspects of end of life; this is part of what Hospice is there to do. "This is something we have time to talk about later," and we left it at that. Impression and Recommendations - Palliative Care Impression: This is a luis e 72-year-old gentleman with severe, chronic shortness of air socondary to interstitial pulmonary disase and a quite complicated health history, including chronic lymphoid leukemia (coming off a 6-year remission), a longhistory of CHF, heart and vascular disease and diabetes. He is on 4L of oxygen 24/04. He uses morphine to control feelings of dyspnea but notices worsening SOB. He is also having worsening cramps in fingers and lower extremities. He would benefit from some blood work to determine if there are issues with anemia/RBC, low ferritin (which can exacerbate RLS symptoms) or electrolyte imbalance. Recommendations/Counseling Done: SOB: Continue morphine as needed for SOB. Suggested decreasing his dosing and increasing frequency. Ordered CBC w/differential to track anemia, RBC count, WBC. Consider switching to long-acting morphine (MS Contin 15mg). We would need to titrate up to taking larger doses. Current dosing is about 15mg daily. Constipation, opioid-induced: Continue Miralax, titrate dosing as needed, from 1/4-1 capful daily. Cramping/pain in fingers and lower extremities: Ordered BMP, look for low potassium. He will get blood drawn at hospital next week. Suggested trying a spoonful of mustard at night for the leg cramps. RLS: Worsened cramping. On pramipexole. Ordered ferritin lab draw because llevels < 75 ng/mL can exacerbate RLS symptoms. Interstitial pulmonary disease: He has a follow up appointmet with the manager terminal in November. He has said he doesn't plan to go. Chronic lymphoid leukemia: Managed by Dr Wahl at [facility]. Advanced care planning: Reviewed his current POLST (DNR, limited) which still reflects his goals. Follow up by phone weekly, meet every 4-6 weeks or as needed, moitor for change in status/functionality/SOB, transition to hospice when appropriate. Time Spent: 45 minutes were spent with more than 50% of the time spent on counseling, education, and coordination of care, including medication reconciliation.
== END 2017-09-28 19:50 | disposition home or self-care (01) ==
LOC: PC 19:49
PROVIDERS: ATTEND Nurse Practitioner
DX: Z51.5 Encounter for palliative care (principal); J84.9 Interstitial pulmonary disease, unspecified; K59.03 Drug induced constipation; T40.2X5D Adverse effect of other opioids, subsequent encounter; G25.81 Restless legs syndrome; C91.10 Chronic lymphocytic leukemia of B-cell type not having achieved remission; I11.0 Hypertensive heart disease with heart failure; I50.9 Heart failure, unspecified; E11.51 Type 2 diabetes mellitus with diabetic peripheral angiopathy without gangrene; I25.10 Atherosclerotic heart disease of native coronary artery without angina pectoris; Z95.5 Presence of coronary angioplasty implant and graft; Z99.81 Dependence on supplemental oxygen; Z79.891 Long term (current) use of opiate analgesic; Z79.4 Long term (current) use of insulin; Z79.84 Long term (current) use of oral hypoglycemic drugs; Z66 Do not resuscitate
CPT/HCPCS: 99349

== ENCOUNTER 2017-10-04 12:43 | Outpatient (CLI) | payer MEDICARE ==
[2017-10-04 17:51] LABS: BASOPHILS # (AUTO) 0.1 10^3/uL (0.0-0.1); BASOPHILS % (AUTO) 0.9 %; EOSINOPHILS # (AUTO) 0.2 10^3/uL (0.0-0.7); EOSINOPHILS % (AUTO) 2.4 %; HGB - HEMOGLOBIN 13.2 g/dL (14.0-18.0); MEAN CORPUSCULAR HEMOGLOBIN 31.9 pg (27.0-31.0); MEAN CORPUSCULAR HGB CONC 33.1 g/dL (32.0-36.0); MEAN CORPUSCULAR VOLUME 96.4 fL (80.0-94.0); MEAN PLATELET VOLUME 8.9 fL (7.4-11.4); MONOCYTES # (AUTO) 0.9 10^3/uL (0.0-1.0); MONOCYTES % (AUTO) 12.5 %; NEUTROPHILS % (AUTO) 70.2 %; PLT - PLATELET COUNT 179 10^3/uL (130-450); RED BLOOD COUNT 4.14 10^6/uL (4.70-6.10); RED CELL DISTRIBUTION WIDTH 13.6 % (12.0-15.0); WHITE BLOOD COUNT 7.1 x10^3/uL (4.8-10.8)
[2017-10-04 18:04] LABS: CALCIUM 9.4 mg/dL (8.5-10.3)
== END 2017-10-04 12:44 | disposition home or self-care (01) ==
LOC: LAB.F 12:43
PROVIDERS: ATTEND Nurse Practitioner
DX: R25.2 Cramp and spasm (principal); R06.02 Shortness of breath
CPT/HCPCS: 36415; 80048; 82728; 85025

== ENCOUNTER 2017-10-25 16:00 | Outpatient (CLI) | payer MEDICARE ==
--- NOTE | 2017-10-25 19:43 | CONSULTATION NOTE ---
Palliative Care Follow Up - Referral Referring Provider: Dr Baltazar Lee Time of Visit: 10/25/17 16:00 - 16:30 Referral setting: Home (Seen in home setting due to taxing and considerable effort required to leave the home due to being homebound secondary to significant breathlessness from interstitial pulmonary disease.) - Information Sources Records reviewed: Previous records reviewed History/Review of Systems obtained from: Patient Exam limitations: No limitations - History of Present Illness Update Brief HPI Update: This is a luis e 72-year-old gentleman with interstitial pulmonary disease and a quite complicated health history, including chronic lymphoid leukemia, heart failure, PVD, DM2, HTN, HLD, OA, RLS. He has undergone two open heart surgeries , had multiple stents placed, and multiple hospital admissions for CAD, PVD, respiratory failure. 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 He is on 4 liters of oxygen via nasal cannula 24/04 and becomes severely dyspneic with any exertion. He continues a slow but steady decline. He notes that he goes through episodes of sudden weakness, when he literally collapses. His leg (or legs) go suddenly weak and he collapses on to the ground. That has happened in a parking lot, and at a few other times, and can especially happen at night, if he wakes up and gets out of bed. So now he always walks with the aid of a cane or his walker. He is is more fatigued, and needs to nap throughout the day. He states he becomes "real, real tired," and will just fall asleep in the middle of what he is doing. After 20 minutes he'll wake refreshed. He continues to use about 3-4 doses of morphine 5mg (0.25mL) per day for relief of breathlessness. He also gets relief from sporadic anxiety attacks with lorazepam. He does report that his RLS has greatly improved, and he does not complain today about numbness/ tingling in hands/fingers. He continues to have a healthy appetite and enjoys eating. He is having no issues with constipation or N/V. He does stay at home because of his SOB and fatigue, and to avoid exposing himself to pathogens. 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 The retina is swelling up, and he has been prescribed eye drops. Social History - Living Situation Living arrangement: At home Living Situation: With spouse/s.o. Support System: [place] [employer] They have lived here 25 years and have a very close and supportive network of friends who help them out, taking them on errands and to appointments. Neither the patient nor his drive anymore. Medications/Allergies - Medications Home Medications: Ambulatory Orders Medication Instructions Recorded Confirmed Insulin Glargine,Hum.rec.anlog 50 unit SQ QAM 02/01/13 10/25/17 [Lantus] Losartan [Cozaar] 50 mg PO BID 02/01/13 10/25/17 Metformin HCl 500 mg PO BID 02/01/13 10/25/17 Potassium 10 meq PO DAILY 02/01/13 10/25/17 Hydrocodone/Acetaminophen [[place] 1 - 2 tab PO Q6H PRN 10/01/15 10/25/17 5-325 Tablet] Amoxicillin/Potassium Clav [Amox 1 each PO BID 02/01/16 10/25/17 Tr-K Clv 875-125 mg Tab] Clopidogrel [Plavix] 75 mg PO DAILY 08/01/16 10/25/17 Isosorbide Mononitrate ER [Imdur] 30 mg PO DAILY 08/01/16 10/25/17 [place]-3/Dha/Epa/Fish Oil [[place] 3 2 cap PO BID 08/01/16 10/25/17 500 Softgel] Torsemide 60 mg PO DAILY 08/01/16 10/25/17 Aspirin [Adult Low Dose Aspirin EC] 81 mg PO DAILY 08/04/17 10/25/17 Insulin Lispro [Humalog] 8 unit SUBQ ONCE PRN MDD use 08/04/17 10/25/17 sliding scale LORazepam [Ativan] 0.5 mg PO Q6H PRN 08/04/17 10/25/17 Morphine Sulfate [Morphine Sulf 0.25 ml PO Q2H PRN 08/04/17 10/25/17 Oral (Roxanol)] Nitroglycerin [Nitrostat] 0.4 mg SL Q5MIN PRN 08/04/17 10/25/17 Pramipexole Di-HCl [Mirapex] 1 mg PO QPM 08/04/17 10/25/17 Zolpidem Tartrate [Ambien] 5 - 10 mg PO QPM PRN 08/04/17 10/25/17 Polyethylene Glycol 3350 [Miralax] 17 gm PO DAILY 09/05/17 10/25/17 Carvedilol 6.25 mg PO DAILY 10/25/17 10/25/17 Eye Drops 1 drops RIGHTEYE DAILY 10/25/17 Ferrous Sulfate 325 mg PO DAILY 10/25/17 10/25/17 - Allergies Allergies/Adverse Reactions: Allergies Allergy/AdvReac Type Severity Reaction Status Date / Time No Known Drug Allergies Allergy Verified 02/01/13 11:38 Review of Systems - Constitutional Constitutional: reports: Fatigue, Weight stable. denies: Poor appetite - Eyes Eyes: reports: Vision loss (L eye is blind; R eye has retinal swelling.) - Ears, Nose & Throat Ears, Nose & Throat: reports: Hearing loss - Cardiovascular Cardiovascular: reports: Exertional dyspnea, Decr. exercise tolerance. denies: Chest pain, Edema, Lightheadedness - Respiratory Respiratory: reports: SOB at rest, SOB with exertion, Pleuritic pain ( occasionally) - Gastrointestinal Gastrointestinal: reports: Good appetite. denies: Constipation, Diarrhea, Change in bowel habits, Nausea, Vomiting - Genitourinary Genitourinary: denies: Dysuria, Frequency, Urgency, Incontinence - Musculoskeletal Musculoskeletal: reports: Stiffness, Muscle weakness (episodic sudden weakness of lower extremities), Assistive devices (ambulates with cane or walker) - Endocrine Endocrine: reports: Diabetes type 2 (lantus, regular insulin, metformin) - Hematologic/Lymphatic Hematologic/Lymphatic: reports: Other (on Augmentin indefinitely for infection after vascular surgery (in groin) two years ago). denies: Lymphadenopathy Physical Exam - Vital Signs Temperature: 96.8 F Pulse Rate: 45 O2 Saturation: 99 Blood Pressure: 160/90 - Physical Exam General Appearance: positive: No acute distress, Alert Eyes Bilateral: positive: EOMI, No scleral icterus, Other (swollen around L eye ; conjunctivae injected) ENT: positive: No signs of dehydration Neck: positive: Thyroid nml, No JVD, Trachea midline Cardiovascular: positive: Regular rate & rhythm, No murmur, No gallop Respiratory: positive: Chest non-tender, No respiratory distress, Diminished throughout (worse on left lobes). negative: Wheezes, Rales, Rhonchi Abdomen: positive: Obese Skin: positive: No symptoms Extremities: positive: No pedal edema Neurologic/Psychiatric: positive: Oriented x3, Mood/affect nml, Weakness (in lower extremities) Palliative Care - POLST Patient has POLST: Yes POLST Status: DNR, Selective Treatment Tiredness/Fatigue: Severe (7-10) Drowsiness/Sedation: None Nausea: None Anxiety: Moderate (4-6), Comment (Episodic panic attacks, relieved with lorazepam, or going outside to breath) Dyspnea: Severe (7-10) (O2 sats at 99% on O2 4L/hr, sitting still) Sleep: Sleeps well Constipation: No, Managed Feelings of wellbeing/Perceived Quality of Life: Good - Palliative Care Discussion: He and his are very close, and report that they enjoy every day. They were told 35 years ago by the physician, when he had his first angiogram, to enjoy every day because his time is limited, and they feel they have done so. He wanted to know what to expect as his disease progresses, so I provided anticipatory guidance, using the car running out of gas analogy, and also touched on other risks such as pneumonia and fall/fracture risk. He reiterated how careful he is about staying at home so he doesn't expose himself to pathogens. Also he uses his cane or walker consistently because he is aware he is at high risk for falls. I wanted to know further about his statement at our previous visit that he didn' t want to at home, and he said he no longer feels that way after our discussion about the services Hospice offers. He had been afraid that his body would remain in the house for days and didn't want that stress and anxiety for his . He has a better understanding of how Hospice is involved, and is in agreement for eventual transition to Hospice when it is appropriate. We agreed to the plan of ongoing palliative care oversight with monthly visits, and he will call me if anything changes or a new issues arises. He did mention the pulmonology appointment next month with Dr Dumas on Nov 29. Last visit he stated he didn't plan to go. He has changed his mind and plans to go to see what the web portal developer will suggest. He will agree to whatever tests they advise, though he does not think he will be able to do a treadmill test. Impression and Recommendations - Palliative Care Impression: This is luis e 72-year old gentleman with severe, chronic shortness of air secondary to interstitial pulmonary disease and a quite complicated health history including chronic lyphoid leukemia (his 6-year remission ended last year ), a long history of CHF, heart and vascular disease and diabetes. He continues on 4L of O2 24/04 and morphine controls his respiratory symptoms. He is slowly declining and becoming progressively weaker, with episodes of sudden weakness of lower extremities and collapsing. He would benefit from continued palliative care monitoring, symptom management, and eventual transition to Hospice when appropriate. Recommendations/Counseling Done: Breathlessness: Severe, but adequately managed with 24hr O2 (4Liters) and current dosing of 5mg (0.25mL) liquid morphine every 3-4 hrs as needed. He usually uses it 3-4 times/day. He plans to attend the web portal developer 6-month checkup next month on 11/29/17. Anxiety: Continue Lorazepam as needed. Encouraged and supported him in his non- pharmacological methods of management and relaxation. Constipation, opioid-induced: Well controlled. Continue Miralax. RLS: He reports it is much improved. He is continuing the ferrous sulfate 325 mg, recommended because his ferritin levels were less than 75, which can exacerbate RLS symptoms. Anemia: H&H of 10/04/17 runs slightly low at 13.2 / 39.9. RBC runs slightly low at 4.14. WBC is normal (7.1), ferritin normal at 52.7. Continue ferrous sulfate 325mg daily. Advanced care planning: Discussed end-of-life scenarios, he is agreeable to transitioning to Hospice when appropriate and to monthly visits by palliative care for symptom management and goals of care. Visit monthly, call patient ahead of time. Time Spent: 30 minutes were spent with more than 50% of the time spent on counseling, education, and coordination of care, including medication reconciliation. Provided anticipatory guidance about respiratory disease, leukemia, and end of life.
--- NOTE | 2017-10-25 20:39 | CONSULTATION NOTE ---
Palliative Care Follow Up - Referral Referring Provider: Dr Baltazar Lee Time of Visit: 10/25/17 16:00 - 16:30 Referral setting: Home (Seen in home setting due to taxing and considerable effort required to leave the home setting due to being homebound secondary to significant breathlessness from interstitial pulmonary disease.) - Information Sources Records reviewed: Previous records reviewed History/Review of Systems obtained from: Patient Exam limitations: No limitations Medications/Allergies - Medications Home Medications: Ambulatory Orders Medication Instructions Recorded Confirmed Insulin Glargine,Hum.rec.anlog 50 unit SQ QAM 02/01/13 08/04/17 [Lantus] Losartan [Cozaar] 50 mg PO BID 02/01/13 08/04/17 Metformin HCl 500 mg PO BID 02/01/13 08/04/17 Potassium 10 meq PO DAILY 02/01/13 08/04/17 Hydrocodone/Acetaminophen [[place] 1 - 2 tab PO Q6H PRN 10/01/15 08/04/17 5-325 Tablet] Amoxicillin/Potassium Clav [Amox 1 each PO BID 02/01/16 08/04/17 Tr-K Clv 875-125 mg Tab] Clopidogrel [Plavix] 75 mg PO DAILY 08/01/16 08/04/17 Isosorbide Mononitrate ER [Imdur] 30 mg PO DAILY 08/01/16 08/04/17 Metoprolol Tartrate [Lopressor] 100 mg PO BID 08/01/16 08/04/17 [place]-3/Dha/Epa/Fish Oil [[place] 3 2 cap PO BID 08/01/16 08/04/17 500 Softgel] Torsemide 60 mg PO DAILY 08/01/16 08/04/17 Aspirin [Adult Low Dose Aspirin EC] 81 mg PO DAILY 08/04/17 08/04/17 Insulin Lispro [Humalog] 8 unit SUBQ ONCE PRN MDD use 08/04/17 08/04/17 sliding scale LORazepam [Ativan] 0.5 mg PO Q6H PRN 08/04/17 08/04/17 Morphine Sulfate [Morphine Sulf 0.25 ml PO Q2H PRN 08/04/17 08/04/17 Oral (Roxanol)] Nitroglycerin [Nitrostat] 0.4 mg SL Q5MIN PRN 08/04/17 08/04/17 Nystatin 1 each TOP BID PRN 08/04/17 08/04/17 Pramipexole Di-HCl [Mirapex] 1 mg PO QPM 08/04/17 08/04/17 Pravastatin Sodium 20 mg PO QPM 08/04/17 08/04/17 Zolpidem Tartrate [Ambien] 5 - 10 mg PO QPM PRN 08/04/17 08/04/17 Polyethylene Glycol 3350 [Miralax] 17 gm PO DAILY 09/05/17 09/05/17 - Allergies Allergies/Adverse Reactions: Allergies Allergy/AdvReac Type Severity Reaction Status Date / Time No Known Drug Allergies Allergy Verified 02/01/13 11:38
== END 2017-10-25 16:01 | disposition home or self-care (01) ==
LOC: PC 16:00
PROVIDERS: ATTEND Nurse Practitioner
DX: Z51.5 Encounter for palliative care (principal); Z99.81 Dependence on supplemental oxygen; E11.51 Type 2 diabetes mellitus with diabetic peripheral angiopathy without gangrene; J84.9 Interstitial pulmonary disease, unspecified; Z79.4 Long term (current) use of insulin; C91.10 Chronic lymphocytic leukemia of B-cell type not having achieved remission; I11.0 Hypertensive heart disease with heart failure; I50.9 Heart failure, unspecified; E78.5 Hyperlipidemia, unspecified; G25.81 Restless legs syndrome; Z95.5 Presence of coronary angioplasty implant and graft; Z91.81 History of falling; Z79.891 Long term (current) use of opiate analgesic; Z79.2 Long term (current) use of antibiotics; Z66 Do not resuscitate; F41.0 Panic disorder [episodic paroxysmal anxiety]; K59.03 Drug induced constipation; T40.2X5D Adverse effect of other opioids, subsequent encounter; D64.9 Anemia, unspecified
CPT/HCPCS: 99348

== ENCOUNTER 2017-11-22 12:15 | Outpatient (CLI) | payer MEDICARE ==
--- NOTE | 2017-11-22 17:29 | CONSULTATION NOTE ---
Palliative Care Follow Up - Referral Referring Provider: Dr Baltazar Lee Time of Visit: 11/22/2017 12:15 - 13:00 Referral setting: Home - Information Sources Records reviewed: Previous records reviewed History/Review of Systems obtained from: Patient Exam limitations: No limitations - History of Present Illness Update Brief HPI Update: This is a luis e 72-year-old gentleman with interstitial pulmonary disease and complicated health history, including chronic lymphoid leukemia, heart failure, PVD, DM 2, HTN, HLD, OA, RLS. He has undergone 2 open heart surgeries, had multiple stents placed, and multiple hospital admissions for CAD, PVD, respiratory failure. Last year he came out of his 6 year remission of the lymphoma but could not undergo chemotherapy due to the significant decline in his respiratory status. He is on 5 L of oxygen via nasal cannula 24/04 and becomes severely dyspneic with any exertion. He reports increased shortness of breath and increased usage of morphine, from 3 -4 times a day to 5-6 times a day. He is also increasing the dosage from 0.25 mL to 0.3 mL. He regularly uses lorazepam, about 3 times daily, to control anxiety associated with breathlessness. The SOB is worse in the evenings around 7pm, with lightheadedness. He checks in BGs and they are fine. He is more fatigued, needs more sleep, and gets short of breath more easily with exertion. His legs are very weak, he uses 4WW when he gets up at night. During the day, in the house, he is using the cane. His appetite is declining, he is eating less, and finds that he has early satiety. He has pain/problems with the R retina, consulted with his market risk analyst. There is swelling where the retina is attached, likely related to his increased blood pressure, which was 196/96 during his visit to PCP on 11/20/17. Clonidine as needed was added. He has a pulmonology appointment on November [address] Keane. Social History - Living Situation Living arrangement: At home Living Situation: With spouse/s.o. (Good support network of friends and associates who help them with the farm, running errands, and shopping. Neither the patient nor his are able to drive.) Medications/Allergies - Medications Home Medications: Ambulatory Orders Medication Instructions Recorded Confirmed Insulin Glargine,Hum.rec.anlog 50 unit SQ QAM 02/01/13 11/23/17 [Lantus] Losartan [Cozaar] 50 mg PO BID 02/01/13 11/23/17 Metformin HCl 500 mg PO BID 02/01/13 11/23/17 Potassium 10 meq PO DAILY 02/01/13 11/23/17 Hydrocodone/Acetaminophen [[place] 1 - 2 tab PO Q6H PRN 10/01/15 11/23/17 5-325 Tablet] Clopidogrel [Plavix] 75 mg PO DAILY 08/01/16 11/23/17 Isosorbide Mononitrate ER [Imdur] 30 mg PO DAILY 08/01/16 11/23/17 [place]-3/Dha/Epa/Fish Oil [[place] 3 2 cap PO BID 08/01/16 11/23/17 500 Softgel] Torsemide 120 mg PO DAILY 08/01/16 11/23/17 Aspirin [Adult Low Dose Aspirin EC] 81 mg PO DAILY 08/04/17 11/23/17 Insulin Lispro [Humalog] 8 unit SUBQ ONCE PRN MDD use 08/04/17 11/23/17 sliding scale LORazepam [Ativan] 0.5 mg PO Q6H PRN 08/04/17 11/23/17 Morphine Sulfate [Morphine Sulf 0.25 ml PO Q2H PRN 08/04/17 11/23/17 Oral (Roxanol)] Nitroglycerin [Nitrostat] 0.4 mg SL Q5MIN PRN 08/04/17 11/23/17 Pramipexole Di-HCl [Mirapex] 1 mg PO QPM 08/04/17 11/23/17 Zolpidem Tartrate [Ambien] 10 - 15 mg PO QPM PRN 08/04/17 11/23/17 Polyethylene Glycol 3350 [Miralax] 17 gm PO DAILY 09/05/17 11/23/17 Eye Drops 1 drops RIGHTEYE DAILY 10/25/17 Ferrous Sulfate 325 mg PO DAILY 10/25/17 11/23/17 cloNIDine [[place]ap[place]] 0.1 mg PO Q6H PRN MDD for BY 11/23/17 11/23/17 greater than 150/90 - Allergies Allergies/Adverse Reactions: Allergies Allergy/AdvReac Type Severity Reaction Status Date / Time No Known Drug Allergies Allergy Verified 02/01/13 11:38 Review of Systems - Constitutional Constitutional: reports: Fatigue, Weakness, Poor appetite, Weight stable - Eyes Eyes: reports: Vision loss (L eye blind; R eye retinal swelling), Corrective lenses - Ears, Nose & Throat Ears, Nose & Throat: reports: Hearing loss - Cardiovascular Cardiovascular: reports: Lightheadedness, Exertional dyspnea, Decr. exercise tolerance. denies: Chest pain - Respiratory Respiratory: reports: SOB at rest (worsening), SOB with exertion (worsening) - Gastrointestinal Gastrointestinal: reports: Poor appetite, Early satiety. denies: Constipation - Genitourinary Genitourinary: denies: Dysuria, Incontinence - Musculoskeletal Musculoskeletal: reports: Stiffness, Assistive devices (cane during day; 4WW at night) - Psychiatric Psychiatric: reports: Anxiety (with SOB). denies: Depression - Endocrine Endocrine: reports: Diabetes type 2 (lantus, regular insulin, metformin) Physical Exam - Vital Signs Temperature: 96.4 F Pulse Rate: 72 Respiratory Rate: 99 Blood Pressure: 164/98 - Physical Exam General Appearance: positive: No acute distress Eyes Bilateral: positive: No lid inflammation, Conjunctivae nml, Other (tearing L eye) ENT: positive: No signs of dehydration Neck: positive: No JVD Cardiovascular: positive: Regular rate & rhythm, No murmur, No gallop Respiratory: positive: Chest non-tender, No respiratory distress, Diminished throughout (More diminished on L side. Mild crackles on R lateral) Extremities: positive: Non-tender, Nml appearance, No pedal edema Neurologic/Psychiatric: positive: Oriented x3, Motor nml, Sensation nml, Mood/ affect nml Palliative Care - POLST Patient has POLST: Yes POLST Status: DNR, Selective Treatment Tiredness/Fatigue: Severe (7-10) Dyspnea: Severe (7-10) Anorexia: Moderate (4-6) Constipation: No, Managed - Palliative Care Discussion: The patient has recently seen his PCP for elevated BP and some medication changes were made. He has a consultation with his pulmonlogist on Nov 29. He plans to go but doesn't expect to be able to complete the stress/respiratory function tests due to severe SOB. He does report worsening SOB, so that he has increased his usage of morphine up to using it 5-6 times daily and increasing the dosage, to around 0.3mL. We will wait until after the pulmonology appointment, see what Dr Dumas proposes. Now that the patient is using higher doses of morphine for SOB relief, it may be time to consider adding long-acting morphine, which required that the patient have an increased tolerance for higher opioid doses. The patient reports that Donald, the drywall stripper of the [facility] advent the patient and his used to attend, visits the patient once a week. The patient reports that Donald wants to talk about the [facility] service that will eventually be held for the patient, but he (the patient) isn't yet ready to talk about it. He does have his hymns and music chosen, and that the music will be performed live. He spoke about his special project, [employer] (a facility for homeless youth on [facility]), and that they were having the next board meeting at his house, so that he would be able to attend. This will take place next week. He appeared to be looking forward to being part of it, and spoke about the organization's plans for the future. The patient says he does not feel much worry or anxiety for the future, and the thought of . He feels he is prepared. He also does not yet feel "spiritual " about approaching the end of his life, but feels that he will eventually, that it will happen in its own time. Impression and Recommendations - Palliative Care Impression: This is luis e 72-year-old gentleman with severe, chronic shortness of air secondary to interstitial pulmonary disease and a quite complicated health history, including chronic lymphoid leukemia (his six-year remission ended last year), a long history of CHF, heart and vascular disease and diabetes. His dyspnea is worsening, as is his fatigue and weakness. He is scheduled to follow -up with his cane furniture maker in one week and is waiting to see what the cane furniture maker will recommend. Palliative care will continue to monitor, manage symptoms, and will recommend transition to hospice when appropriate. Depending on what the tests reveal, what his cane furniture maker recommends, and what the patient decides to do, it could be soon. Recommendations/Counseling Done: Breathlessness secondary to COPD/interstitial pulmonary disease: Worsening. Managed with 24-hr O2 at 5L via nasal cannula. Morphine 100mg/5mL - 0.25mL (5mg ) every 2-4 hours as needed, may repeat in 1/2 hour if needed. Patient is using it 5-6 times per day, at around 0.3mL (6mg). He has a cane furniture maker consultation on 11/29/17. Depending on outcome and management recommended by Dr Dumas, consider adding long-acting morphine for better control of SOB since patient has been slowly upward titrating his morphine, in both dosing and frequency, and should have sufficient tolerance for the higher dosing of long- acting morphine. Anxiety: Lorazepam 0.5mg tab every 6 hours as needed for agitation related to SOB, may repeat in 2 hours if needed. Constipation: Controlled with Miralax daily. HTN: Increased BP, was 196/96 at PCP's office on 11/20/17. PCP initiated clonodine 0.1mg tablet q6h as needed for BP greater than 150/90. Continue losartan 50mg twice daily, metoprolol 100mg twice daily, torsemide 120mg daily. and potassium chloride 10meq daily. Advanced care planning: POLST in place, DNR and selective. Depending on the outcome of cane furniture maker consultation next week,and in light of his worsening SOB and decline, follow up with patient to review and discuss goals of care. Continue to monitor disease progress and transition to Hospice when appropriate. Follow up in 2 weeks. Time Spent: 45 minutes were spent with more than 50% of the time spent on counseling, education, and coordination of care.
== END 2017-11-22 12:16 | disposition home or self-care (01) ==
LOC: PC 12:15
PROVIDERS: ATTEND Nurse Practitioner
DX: Z51.5 Encounter for palliative care (principal); J44.9 Chronic obstructive pulmonary disease, unspecified; J84.9 Interstitial pulmonary disease, unspecified; Z99.81 Dependence on supplemental oxygen; F41.9 Anxiety disorder, unspecified; K59.00 Constipation, unspecified; I10 Essential (primary) hypertension; E11.9 Type 2 diabetes mellitus without complications; Z95.5 Presence of coronary angioplasty implant and graft; C91.10 Chronic lymphocytic leukemia of B-cell type not having achieved remission; I50.9 Heart failure, unspecified; Z79.82 Long term (current) use of aspirin; Z79.4 Long term (current) use of insulin; Z79.84 Long term (current) use of oral hypoglycemic drugs; Z79.891 Long term (current) use of opiate analgesic; Z66 Do not resuscitate
CPT/HCPCS: 99349

== ENCOUNTER 2017-12-13 20:09 | Outpatient (CLI) | payer MEDICARE ==
--- NOTE | 2017-12-13 20:16 | CONSULTATION NOTE ---
Palliative Care Follow Up - Referral Referring Provider: Dr Baltazar Lee Time of Visit: 12/13/2017. 11:25 - 12:00 Referral setting: Home (Seen in home setting due to taxing and considerable effort required to leave the home due to being homebound secondary to signifcant breathlessness from interstitial pulmonary disease. Patient is on oxygen 24/04.) - Information Sources Records reviewed: Previous records reviewed History/Review of Systems obtained from: Patient, Family Exam limitations: No limitations - History of Present Illness Update Brief HPI Update: This is a luis e 72-year-old gentleman with interstitial pulmonary disease and complicated health history, including chronic lymphoid leukemia, heart failure, PVD, DM 2, HTN, HLD, OA, RLS. 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 He is on 5 L of oxygen via nasal cannula 24/04 and becomes severely dyspneic with any exertion. The patient has had a recent fall last night. He went to bed rather late and was restless, getting up for a snack, fell and hit his head. He denies pain or any change of consciousness. His notes that he was "being around the kitchen about an hour "before she heard the crash that alerted her to his falling. They have now taken precautions and laid out everything he needs next to his bed, including midnight snacks. There was a question of whether he had some wine before going to bed last night, his says yes he says no. Patient does say that he is not drinking much wine these days and in fact has thrown some out recently. Today he feels better than he did since my last visit, but he notes his SOB with exertion is getting worse. However, his morphine dosing is back down to 3- 4 doses of 0.3ML daily, and 2 doses of lorazepam. I had been considering starting him on long-acting morphine after last visit because he had been needing increased morphine during the day. We discussed this and agreed to keep him on short-acting morphine for now, since his usage has dialed back to his previous baseline. He had his pulmonology visit on November [address] Keane, participated in two cycles of all the diagnostic tests, though he did not do treadmill testing. He was told his lung capacity has decreased a further 10%. What neither he nor his understand is how much his lung capacity has deteriorated since the beginning, so the question is, "what is it 10% of?" The patient has not received any of the diagnostic testing data from Dr. Keane's office, and unfortunately the patient's My Chart does not work, despite having had staff at the clinic trying to help him gain access to it. I will follow-up with Dr. Keane's office to obtain a copy of the test results and forward it to the patient. Social History - Living Situation Living arrangement: At home Living Situation: With spouse/s.o. (Strong support entwork of [employer] and associated who help them with the farm, running errands, shopping, etc. Neither the patient nor his drive any longer.) Medications/Allergies - Medications Home Medications: Ambulatory Orders Medication Instructions Recorded Confirmed Insulin Glargine,Hum.rec.anlog 50 unit SQ QAM 02/01/13 12/13/17 [Lantus] Losartan [Cozaar] 50 mg PO BID 02/01/13 12/13/17 Metformin HCl 1,000 mg PO DAILY 02/01/13 12/13/17 Potassium 10 meq PO DAILY 02/01/13 12/13/17 Hydrocodone/Acetaminophen [[place] 1 - 2 tab PO Q6H PRN 10/01/15 12/13/17 5-325 Tablet] Clopidogrel [Plavix] 75 mg PO DAILY 08/01/16 12/13/17 Isosorbide Mononitrate ER [Imdur] 30 mg PO DAILY 08/01/16 12/13/17 Torsemide 20 mg PO DAILY 08/01/16 12/13/17 Aspirin [Adult Low Dose Aspirin EC] 81 mg PO DAILY 08/04/17 12/13/17 Insulin Lispro [Humalog] 8 unit SUBQ ONCE PRN MDD use 08/04/17 11/23/17 sliding scale LORazepam [Ativan] 0.5 mg PO Q6H PRN 08/04/17 12/13/17 Morphine Sulfate [Morphine Sulf 0.25 ml PO Q2H PRN 08/04/17 12/13/17 Oral (Roxanol)] Nitroglycerin [Nitrostat] 0.4 mg SL Q5MIN PRN 08/04/17 12/13/17 Pramipexole Di-HCl [Mirapex] 1 mg PO QPM 08/04/17 12/13/17 Zolpidem Tartrate [Ambien] 10 - 15 mg PO QPM PRN 08/04/17 12/13/17 Polyethylene Glycol 3350 [Miralax] 17 gm PO DAILY 09/05/17 12/13/17 Eye Drops 1 drops RIGHTEYE DAILY 10/25/17 Ferrous Sulfate 325 mg PO DAILY 10/25/17 12/13/17 cloNIDine [Catapres] 0.1 mg PO Q6H PRN MDD for BY 11/23/17 12/13/17 greater than 150/90 Benzonatate 100 mg PO TID PRN 12/13/17 12/13/17 Carvedilol 6.25 mg PO DAILY 12/13/17 12/13/17 - Allergies Allergies/Adverse Reactions: Allergies Allergy/AdvReac Type Severity Reaction Status Date / Time No Known Drug Allergies Allergy Verified 02/01/13 11:38 Review of Systems - Constitutional Constitutional: reports: Weakness, Weight stable. denies: Poor appetite - Eyes Eyes: reports: Vision loss (L eye blind; R eye retinal swelling), Corrective lenses - Ears, Nose & Throat Ears, Nose & Throat: reports: Hearing loss, Hearing aids - Respiratory Respiratory: reports: SOB at rest (at baseline), SOB with exertion - Gastrointestinal Gastrointestinal: denies: Constipation - Genitourinary Genitourinary: denies: Dysuria, Incontinence - Musculoskeletal Musculoskeletal: reports: Stiffness, Assistive devices (walker). denies: Transfer issues - Neurological Neurological: reports: General weakness Physical Exam - Vital Signs Temperature: 96.4 F Pulse Rate: 57 O2 Saturation: 99 (on 5 liters O2) Blood Pressure: 178/84 - Physical Exam General Appearance: positive: No acute distress, Alert Eyes Bilateral: positive: EOMI, No lid inflammation, Conjunctivae nml, No scleral icterus ENT: positive: No signs of dehydration Neck: positive: No JVD, Trachea midline Cardiovascular: positive: No murmur, No gallop Respiratory: positive: Diminished in bases (LLL diminished), Rales (RLL) Skin: positive: No symptoms Extremities: positive: Non-tender, Nml appearance, No pedal edema Neurologic/Psychiatric: positive: Oriented x3, Mood/affect nml Palliative Care Performance Status: Becoming more SOB, but not increasing his morphine usage. Still ambulatory with walker; had a fall in the middle of the night while up "snacking" in kitchen. - Palliative Care Discussion: The patient reports that the travel pt, Dr Keane, recommends starting nintedanib (Ofev) and says it will extend his life expectancy. The patient's response to that is he doesn't want to have six more months of life if the quality of life is poor. It is his understanding that the side effects are he "will live on" the toilet, ie, because of nausea/vomiting. I asked him what his definition of quality of life is, and he said, "not drooling into my pizza." He is doing oil painting [id number], and it is very soothing for him. He is also enjoying reading. His brought up the fact that they had not followed up on his cancer (lymphoid leukemia), and the patient's response was, "What for?" He has a follow up travel pt appointment on January 10 and plans to go. Impression and Recommendations - Palliative Care Impression: This is a luis e 72-year-old gentleman with severe, chronic shortness of air secondary to interstitial pulmonary disease and a quite complicated health history including chronic lymphoid leukemia and a long history of CHF, heart and vascular disease, and diabetes. He has increasing shortness of breath with exertion and is steadily declining. However he at this point chooses not switch to long-acting morphine, finding that short-acting morphine is adequately managing his SOB. He will follow up with his pulmonlogist next month , but at this time does not plan to start the recommended medication, nintedanib , over concern that the burden of its side effects will outweigh the benefits, and will diminish his quality of life. Palliative care will continue to monitor him and will refer to hospice when appropriate. Recommendations/Counseling Done: Breathlessness secondary to interstitial lung disease: Worsening SOB with exertion. Currently using morphine solution 100mg/5ml, using 0.3ml three to four times daily. He does not want to start long-acting morphine/MSContin at this time. He manages the SOB with the short-acting morphine and closely managing his activity levels. [employer] Service Technician follow-up visit is January 10. I will contact Dr Keane's office to obtain results of his diagnostic testing, forward them to patient. Anxiety: Uses lorazepam 0.5mg tablet about twice daily. Constipation: Continue miralax 17g daily. HTN: BPs run high in mornings, usually lower in evenings. It was 204/81 this morning, then 178/84 by the time of my visit. Continue losartan, carvedilol torsemide, and potassium. Use clonidine as needed for BP greater than 150/90. Dr Lee is managing HTN meds. Advanced care planning: Comfort and quality of life is goal, longevity at cost of quality of life is not acceptable, patient does not want to start new respiratory medication for fear of poor quality of life. Follow up with patient next month. Time Spent: 30 minutes were spent with more than 50% of the time spent on counseling, education, and coordination of care.
== END 2017-12-13 20:10 | disposition home or self-care (01) ==
LOC: PC 20:09
PROVIDERS: ATTEND Nurse Practitioner
DX: Z51.5 Encounter for palliative care (principal); J84.9 Interstitial pulmonary disease, unspecified; F41.9 Anxiety disorder, unspecified; K59.00 Constipation, unspecified; I11.0 Hypertensive heart disease with heart failure; I50.9 Heart failure, unspecified; E11.51 Type 2 diabetes mellitus with diabetic peripheral angiopathy without gangrene; C91.10 Chronic lymphocytic leukemia of B-cell type not having achieved remission; E78.5 Hyperlipidemia, unspecified; M19.90 Unspecified osteoarthritis, unspecified site; G25.81 Restless legs syndrome; Z99.81 Dependence on supplemental oxygen; Z95.5 Presence of coronary angioplasty implant and graft; Z91.81 History of falling; Z79.891 Long term (current) use of opiate analgesic; Z79.4 Long term (current) use of insulin; Z79.899 Other long term (current) drug therapy
CPT/HCPCS: 99348

== ENCOUNTER 2018-01-09 11:22 | Outpatient (CLI) | payer MEDICARE ==
[2018-01-09 17:52] LABS: CREATININE,URINE 104.1 mg/dL; MICROALBUM/CREATININE RATIO,UR 106.6 ug/mg (<30.0); MICROALBUMIN,URINE 11.1 mg/dL (0-300.0)
[2018-01-09 18:03] LABS: ALBUMIN 3.4 g/dL (3.2-5.5); ALBUMIN/GLOBULIN RATIO 0.7 (1.0-2.2); ALKALINE PHOSPHATASE 61 IU/L (42-121); ALT ALANINE AMINOTRANSFERASE 19 IU/L (10-60); AST ASPARTATE AMINOTRANSFERASE 25 IU/L (10-42); BILIRUBIN,TOTAL 0.4 mg/dL (0.2-1.0); BUN - BLOOD UREA NITROGEN 22 mg/dL (6-20); CALCIUM 9.6 mg/dL (8.5-10.3); CARBON DIOXIDE - CO2 28 mmol/L (21-32); CHLORIDE 99 mmol/L (101-111); CHOL/HDL RATIO 6.5 (<5.0); CHOLESTEROL 149 mg/dL; CREATININE 0.9 mg/dL (0.6-1.2); GFR - MDRD 82 (>89); GLUCOSE 69 mg/dL (70-100); HDL CHOLESTEROL 23 mg/dL; SODIUM 138 mmol/L (135-145); TOTAL PROTEIN 8.6 g/dL (6.7-8.2)
[2018-01-09 18:55] LABS: HB2 TOTAL 13.1 g/dL; HEMOGLOBIN A1C 0.84 g/dL
[2018-01-09 19:19] LABS: LDL CHOLESTEROL,DIRECT 56 mg/dL; LDLD/HDL RATIO 2.4 (<3.6)
== END 2018-01-09 11:23 | disposition home or self-care (01) ==
LOC: LAB.F 11:22
PROVIDERS: ATTEND Family Medicine
DX: E11.8 Type 2 diabetes mellitus with unspecified complications (principal); C91.90 Lymphoid leukemia, unspecified not having achieved remission; E78.5 Hyperlipidemia, unspecified; I11.0 Hypertensive heart disease with heart failure; I50.9 Heart failure, unspecified
CPT/HCPCS: 36415; 80053; 80061; 82043; 82570; 83036; 83721

== ENCOUNTER 2018-01-25 16:40 | Outpatient (CLI) | payer MEDICARE ==
--- NOTE | 2018-01-25 20:15 | CONSULTATION NOTE ---
Palliative Care Follow Up - Referral Referring Provider: Dr Baltazar Lee Time of Visit: 01/25/2018. 16:40 - 17:25 Referral setting: Home (Seen in home setting due to taxing and considerable effort required to leave the home due to being homebound because of significant breathlessness from interstitial pulmonary disease. Patient is oxygen dependent 24/04.) Referral Reason: shortness of air - Information Sources Records reviewed: Previous records reviewed History/Review of Systems obtained from: Patient, Family Exam limitations: No limitations - History of Present Illness Update Brief HPI Update: -This is a luis e 72-year-old gentleman with interstitial pulmonary disease on 24/7 oxygen. -Medical history: Chronic lymphoid leukemia, heart failure, PVD, DM 2, HTN, HLD , OA, RLS, history of two open heart surgeries, multiple stents placed, multiple hospital admissions for CAD, PVD, respiratory failure, in 2017 he came out of his 6-year remission of the lymphoma but could not undergo chemotherapy due to the significant decline of his respiratory status. -He is on 3L/minute of oxygen when sedentary, and becomes severely dyspneic with any exertion, so that his need for oxygen increases to 5L/minute. -Today is he doing very well, having just spent some time reading on his deck. It is a very fly day. -He reports SOA has improved since he made an adjustment to his medications for SOA: -In the mornin.25mL morphine and 0.5 mg lorazepam. -In the afternoon: 0.25mL morphine. -At bedtime: 0.25mL morphine and 0.5mg lorazepam. -He has started sleepwalking, a new development. He gets up, does things like look in the refrigerator and moving food around. The next morning he remembers nothing of it. -We discussed possibly getting a motion detector in his room that turns on the light when he gets up. -He is restless at night. One [place] helps him calm down. -He has run out of Ambien, which he used regularly, 10-15mg. His insurance won' t cover it, saying he is "too old." His PCP, Dr eLe, is following up. -In the meantime, he is using OTC Sleep Aid from [employer]. He finds it works just as well as Ambien. -We discussed tolerance build-up to Ambien and that is has a side effect of "complex sleep-related behavior." (justin to sleepwalking). -Patient reports sporadic episodes of lower extremity weakness, with both extremities but not at the same time. -Without warning his lower extremity (right or left) goes weak and he "collapses." No pain, no pattern, no syncope or lightheadedness. The last time it occurred was earlier this month. -He saw his property developer, Dr Keane, and reported he said "nothing." He has a follow up consultation in Nov [address] scan to monitor the progress of his disease. The patient plans to go. -He had a recent PCP visit. His BP was elevated even more than usual (over 200) , he adjusted medication and BP has settled. He is now on clonidine transdermal patch, previously he had clonidine tablets PRN for SBP >150 -He is scheduled to see his international marketing coordinator next week for painful calluses on his heel. -He will be ordering diabetic shoes; he qualifies for one pair every two years. Social History - Living Situation Living arrangement: At home Living Situation: With spouse/s.o. Support System: Neither the patient nor his drive anymore. They have a strong social support network of friends and neighbors. When they need a lift somewhere, his sends out an email and always receives responses and gets a ride. 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 Medications/Allergies - Medications Home Medications: Ambulatory Orders Medication Instructions Recorded Confirmed Insulin Glargine,Hum.rec.anlog 50 unit SQ QAM 02/01/13 01/25/18 [Lantus] Losartan [Cozaar] 50 mg PO BID 02/01/13 01/25/18 Metformin HCl 1,000 mg PO DAILY 02/01/13 01/25/18 Potassium 10 meq PO DAILY 02/01/13 01/25/18 Hydrocodone/Acetaminophen [[place] 1 - 2 tab PO Q6H PRN 10/01/15 01/25/18 5-325 Tablet] Clopidogrel [Plavix] 75 mg PO DAILY 08/01/16 01/25/18 Isosorbide Mononitrate ER [Imdur] 30 mg PO DAILY 08/01/16 01/25/18 Torsemide 20 mg PO DAILY 08/01/16 01/25/18 Aspirin [Adult Low Dose Aspirin EC] 81 mg PO DAILY 08/04/17 01/25/18 Insulin Lispro [Humalog] 8 unit SUBQ ONCE PRN MDD use 08/04/17 01/25/18 sliding scale LORazepam [Ativan] 0.5 mg PO Q6H PRN 08/04/17 01/25/18 Morphine Sulfate [Morphine Sulf 0.25 ml PO Q2H PRN 08/04/17 01/25/18 Oral (Roxanol)] Nitroglycerin [Nitrostat] 0.4 mg SL Q5MIN PRN 08/04/17 01/25/18 Pramipexole Di-HCl [Mirapex] 1 mg PO QPM 08/04/17 01/25/18 Polyethylene Glycol 3350 [Miralax] 17 gm PO DAILY 09/05/17 01/25/18 Ferrous Sulfate 325 mg PO DAILY 10/25/17 01/25/18 Benzonatate 100 mg PO TID PRN 12/13/17 01/25/18 Carvedilol 6.25 mg PO DAILY 12/13/17 01/25/18 cloNIDine 0.1 MG PATCH 1 ea TD 01/25/18 [[id number]] diphenhydrAMINE HCl [Sleep Aid] 1 ea .QHS PRN MDD replaced Ambien 01/25/1801/25 - Allergies Allergies/Adverse Reactions: Allergies Allergy/AdvReac Type Severity Reaction Status Date / Time No Known Drug Allergies Allergy Verified 02/01/13 11:38 Review of Systems - Constitutional Constitutional: reports: Fatigue (due to chronic shortness of air), Weakness ( Sudden weakness in LEs), Weight stable. denies: Poor appetite - Eyes Eyes: reports: Vision loss (L eye blind; R eye retinal swelling), Corrective lenses - Ears, Nose & Throat Ears, Nose & Throat: reports: Hearing loss, Hearing aids - Cardiovascular Cardiovascular: reports: Exertional dyspnea, Decr. exercise tolerance. denies: Irregular heart rate, Chest pain, Edema, Lightheadedness, Syncope - Respiratory Respiratory: reports: SOB at rest, SOB with exertion. denies: Cough, Orthopnea - Gastrointestinal Gastrointestinal: reports: Good appetite. denies: Constipation, Poor appetite - Genitourinary Genitourinary: denies: Incontinence - Musculoskeletal Musculoskeletal: reports: Stiffness, Assistive devices (walker). denies: Transfer issues - Neurological Neurological: reports: Other (Has sudden episodes of weakness in one lower extremity or another, no pattern, no pain, just sudden weakness in the limb and he collapses.) - Psychiatric Psychiatric: denies: Depression Physical Exam - Vital Signs Temperature: 96.5 F Pulse Rate: 63 O2 Saturation: 97 (on 5L O2 via nasal cannula) Blood Pressure: 165/88 - Physical Exam General Appearance: positive: No acute distress, Alert Eyes Bilateral: positive: No lid inflammation, Conjunctivae nml, No scleral icterus ENT: positive: No signs of dehydration Neck: positive: No JVD, Trachea midline Cardiovascular: positive: Regular rate & rhythm, No murmur, No gallop Respiratory: positive: Chest non-tender, No respiratory distress, Diminished in bases Abdomen: positive: Obese Skin: positive: No symptoms Extremities: positive: Non-tender, Nml appearance Neurologic/Psychiatric: positive: Oriented x3, Mood/affect nml Palliative Care - POLST Patient has POLST: Yes POLST Status: DNR, Selective Treatment Pain: No pain Tiredness/Fatigue: Mild (1-3) Dyspnea: Severe (7-10), Comment (controlled with morphine and lorazepam, Both of them in the morning and at bedtime, and just morphine in the afternoon) Anorexia: None Sleep: Sleeps poorly (He is restless at night. Can't use Ambien currently because insurance won't cover it, but finds that Sleep Aid (diphenhydramine/ Benadryl) works just as well. He was sleepwalking, but hasn't since he ran out of [employer] several weeks ago) Constipation: No Feelings of wellbeing/Perceived Quality of Life: Good Performance Status: SOA with exertion, is on 5L oxygen 24/7. He no longer drives because he is worried he will get too fatigued to. He is able to ambulate, but remains mostly in the house, due to concern he may have one of his episodes of a lower extremity suddenly collapsing. He is able to perform his own ADLs. Impression and Recommendations - Palliative Care Impression: This is a luis e 72-year-old gentleman with severe, chronic shortness of air secondary to interstitial pulmonary disease and a quite complicated health history including chronic lymphoid leukemia and a long history of CHF, heart vascular disease, and diabetes. He has stabilized somewhat with SOA and functional decline but does continue to slowly and steadily decline in functionality and SOA. He had a recent pulmonology appointment with no new news. His next pulmonology consult will be in November [address] scan to track the progression of his pulmonary disease. He currently views his quality of life as good and finds pleasure in his daily activities and his community activities as well. He would benefit from continued palliative care oversight for symptom control of his chronic SOA. Recommendations/Counseling Done: SOA secondary to interstitial lung disease: At last month's visit his SOA had worsened; this visit it has stabilized. He is satisfied with the alteration he has made to his morphine regimen: He now uses morphine and lorazepam in the morning and at bedtime, and morphine by itself in the afternoon. he finds this controls his SOA much better: "getting ahead of it, instead of waiting until it gets bad to take the medicine." He is not interested in any medication adjustment at this time, feels no need to start extended release morphine. Constipation: Well-controlled with MiraLAX daily. Anxiety: He is using lorazepam 0.5 mg tablet morning and bedtime and finds it controls his anxiety sufficiently. HTN: He had a recent period of very high blood pressure, SBP over 200, his PCP adjusted medication, including changing clonidine to a transdermal patch, his blood pressure is now under better control, back to his baseline. Today's BP was 165/88. DM 2: He has a follow-up international marketing coordinator appointment next week for diabetic foot care. He also will be ordering diabetic shoes, which he qualifies for every 2 years. He continues on metformin, long-acting insulin, and regular insulin sliding scale. Advanced care planning: Comfort and quality of life continue to be his goals of care, he is not interested in longevity at the expense of quality of life. Therefore he has chosen not to start nintedavib/Ofev, which was proposed by Dr. Keane. In addition, the co-pay is $2000 a month, for an "additional 6-8 months life expectancy." This is not worth it to him. His Nelia, agrees. Follow up visit next month, call ahead of time. Time Spent: 45 minutes were spent with more than 50% of the time spent on counseling, education, and coordination of care.
== END 2018-01-25 16:41 | disposition home or self-care (01) ==
LOC: PC 16:40
PROVIDERS: ATTEND Nurse Practitioner
DX: Z51.5 Encounter for palliative care (principal); J84.9 Interstitial pulmonary disease, unspecified; K59.00 Constipation, unspecified; F41.9 Anxiety disorder, unspecified; I11.0 Hypertensive heart disease with heart failure; E11.9 Type 2 diabetes mellitus without complications; I50.9 Heart failure, unspecified; R53.1 Weakness; Z85.6 Personal history of leukemia; Z99.81 Dependence on supplemental oxygen; Z79.4 Long term (current) use of insulin; Z79.891 Long term (current) use of opiate analgesic; Z79.82 Long term (current) use of aspirin; Z66 Do not resuscitate
CPT/HCPCS: 99349

== ENCOUNTER 2018-02-22 20:46 | Outpatient (CLI) | payer MEDICARE ==
--- NOTE | 2018-02-22 21:10 | CONSULTATION NOTE ---
Palliative Care Follow Up - Referral Referring Provider: Dr Baltazar Lee Time of Visit: 02/22/2018. 14:10 - 14:45 Referral setting: Home (Seen in home setting due to taxing and considerable effort required to leave the home due to being homebound because of significant breathlessness secondary to interstitial pulmonary disease.) Referral Reason: short of breath, worsening - Information Sources Records reviewed: Previous records reviewed History/Review of Systems obtained from: Patient Exam limitations: No limitations - History of Present Illness Update Brief HPI Update: -Esmer 72-year-old gentleman with interstitial pulmonary disease, on 24/7 oxygen. -Medical history: Chronic lymphoid leukemia, heart failure, PVD, DM 2, HTN, HLD , OA, RLS, history of 2 open heart surgeries, multiple stents placed, multiple hospital admissions for CAD, B PVD, respiratory failure. 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 -His dyspnea has recently worsened. -He is now on O2 5L/minute. -He stood up for 1-2 minutes, and his O2 sats quickly dropped to 79%. It is 99 % at rest while on 5 L of oxygen, but now gets DOA even with the O2 at 5L. -He notes that today is the best he's felt since Monday (4 days ago). -He has agreed to add long-acting morphine (MSContin) as long as he can still use short-acting for the breakthrough. -He uses 0.3mL morphine 3x/day. Social History - Living Situation Living arrangement: At home Living Situation: With spouse/s.o. Support System: He and his enjoy a strong social support network of friends and neighbors on [facility], so their many friends help out and drive her where she needs to go. The patient is housebound, does not leave due to his severe dyspnea. Medications/Allergies - Medications Home Medications: Ambulatory Orders Medication Instructions Recorded Confirmed Insulin Glargine,Hum.rec.anlog 50 unit SQ QAM 02/01/13 02/23/18 [Lantus] Losartan [Cozaar] 50 mg PO BID 02/01/13 02/23/18 Metformin HCl 1,000 mg PO DAILY 02/01/13 02/23/18 Potassium 10 meq PO DAILY 02/01/13 02/23/18 Hydrocodone/Acetaminophen [Calhan 1 - 2 tab PO Q6H PRN 10/01/15 02/23/18 5-325 Tablet] Clopidogrel [Plavix] 75 mg PO DAILY 08/01/16 02/23/18 Isosorbide Mononitrate ER [Imdur] 30 mg PO DAILY 08/01/16 02/23/18 Torsemide 20 mg PO DAILY 08/01/16 02/23/18 Aspirin [Adult Low Dose Aspirin EC] 81 mg PO DAILY 08/04/17 02/23/18 Insulin Lispro [Humalog] 8 unit SUBQ ONCE PRN MDD use 08/04/17 02/23/18 sliding scale LORazepam [Ativan] 0.5 mg PO Q6H PRN 08/04/17 02/23/18 Morphine Sulfate [Morphine Sulf 0.25 ml PO Q2H PRN 08/04/17 02/23/18 Oral (Roxanol)] Nitroglycerin [Nitrostat] 0.4 mg SL Q5MIN PRN 08/04/17 02/23/18 Pramipexole Di-HCl [Mirapex] 1 mg PO QPM 08/04/17 02/23/18 Polyethylene Glycol 3350 [Miralax] 17 gm PO DAILY 09/05/17 02/23/18 Ferrous Sulfate 325 mg PO DAILY 10/25/17 02/23/18 Benzonatate 100 mg PO TID PRN 12/13/17 02/23/18 Carvedilol 6.25 mg PO DAILY 12/13/17 02/23/18 cloNIDine 0.1 MG PATCH 1 ea TD 01/25/18 [[id number]-[id number]] diphenhydrAMINE HCl [Sleep Aid] 1 ea .QHS PRN MDD replaced Ambien 01/25/1802/23 Morphine Sulfate [Ms Contin] 15 mg PO BID 02/23/18 02/23/18 Sennosides [Senna Lax] 8.6 mg PO DAILY 02/23/18 02/23/18 - Allergies Allergies/Adverse Reactions: Allergies Allergy/AdvReac Type Severity Reaction Status Date / Time No Known Drug Allergies Allergy Verified 02/01/13 11:38 Review of Systems - Constitutional Constitutional: reports: Weakness (episodes of sudden weakness in LEs), Weight stable (Between 190-200 lbs. He weighs himself regularly). denies: Poor appetite - Eyes Eyes: reports: Vision loss (L eye blind; R eye retinal swelling), Corrective lenses - Ears, Nose & Throat Ears, Nose & Throat: reports: Hearing loss, Hearing aids, Postnasal drainage - Cardiovascular Cardiovascular: reports: Exertional dyspnea (worsening), Decr. exercise tolerance. denies: Edema - Respiratory Respiratory: reports: SOB at rest, SOB with exertion. denies: Cough, Sputum production - Gastrointestinal Gastrointestinal: denies: Constipation - Genitourinary Genitourinary: denies: Dysuria, Incontinence - Musculoskeletal Musculoskeletal: reports: Stiffness - Neurological Neurological: reports: Focal weakness (lower extremities suddenly collapse) - Psychiatric Psychiatric: denies: Depression, Anxiety - Endocrine Endocrine: reports: Diabetes type 2 Physical Exam - Vital Signs Temperature: 96.0 F Pulse Rate: 88 O2 Saturation: 79 Blood Pressure: 150/74 (improved) - Physical Exam General Appearance: positive: No acute distress, Alert Eyes Bilateral: positive: No lid inflammation, Conjunctivae nml, No scleral icterus ENT: positive: No signs of dehydration Neck: positive: No JVD, Trachea midline Cardiovascular: positive: Regular rate & rhythm, No murmur, No gallop Respiratory: positive: Chest non-tender, Diminished throughout (severe on LL) Abdomen: positive: Obese Skin: positive: No symptoms Extremities: positive: Nml appearance, No pedal edema Neurologic/Psychiatric: positive: Oriented x3, Mood/affect nml Palliative Care - POLST Patient has POLST: Yes POLST Status: DNR, Selective Treatment Pain: No pain Anxiety: None Dyspnea: None, Severe (7-10), Comment (worsening) Sleep: Sleeps poorly, Other (Uses Benadryl for sleep aid, says it works better than Ambien) Constipation: No, Managed - Palliative Care Discussion: Patient is amenable to transfer to the Hospice team, his main concern is that he can stay in his house. My concern is with his lung function clearly worsening , and his episodes of sudden lower extremity weakness and collapse, 24/04 Hospice coverage is becoming necessary. Impression and Recommendations - Palliative Care Impression: Esmer 72-year-old gentleman with severe, chronic shortness of air secondary to interstitial pulmonary disease a quite complicated health history, including chronic lymphoid leukemia and a long history of CHF, heart valvular disease, and diabetes. He has been with the palliative care service for 6 months, using morphine and lorazepam to control his increasingly severe dyspnea. His lung function is worsening and transition to hospice is recommended for appropriate levels of monitoring and support. Recommendations/Counseling Done: SOA secondary to interstitial lung disease: Worsening dyspnea; oxygen saturation drops to 79% with minimal level of exertion and removal of O2 for a moment. Add MS Contin 15mg BID for base control of dyspnea, continue 5mg morphine solution as needed every 2 hours. Anxiety, restlessness: Continue lorazepam as needed. Constipation, opioid induced: Continue 17g daily of Miralax, add senna 8.6mg daily. HTN: Continued adequate control with the clonidine patch. Today BP is 150/74, excellent for the patient. Continue Losartan and carvedilol. Advanced care planning: Recommend transfer to Hospice due to worsening dyspnea oxygen saturation (down to 79% with exertion) while on oxygen 5L/minute 24/04. Patient wants no hospital transfer, wants to remain at home. Time Spent: 35 minutes were spent with more than 50% of the time spent on counseling, education, and coordination of care.
== END 2018-02-22 20:47 | disposition home or self-care (01) ==
LOC: PC 20:46
PROVIDERS: ATTEND Nurse Practitioner
DX: Z51.5 Encounter for palliative care (principal); J84.9 Interstitial pulmonary disease, unspecified; F41.9 Anxiety disorder, unspecified; K59.03 Drug induced constipation; T40.2X5D Adverse effect of other opioids, subsequent encounter; Z79.899 Other long term (current) drug therapy; C91.10 Chronic lymphocytic leukemia of B-cell type not having achieved remission; I11.0 Hypertensive heart disease with heart failure; I50.9 Heart failure, unspecified; E11.51 Type 2 diabetes mellitus with diabetic peripheral angiopathy without gangrene; Z95.5 Presence of coronary angioplasty implant and graft; Z79.891 Long term (current) use of opiate analgesic; Z99.81 Dependence on supplemental oxygen; Z79.4 Long term (current) use of insulin; Z66 Do not resuscitate
CPT/HCPCS: 99348